=== PATIENT | male | born 1965 | race Caucasian/White ===

== ENCOUNTER 2024-06-24 05:29 | Inpatient (IN) ==
[2024-06-24] MEDS: DUONEB NEB STA ×3 (05:35→05:45)
[2024-06-24] MEDS: SOLU-MEDROL 125 MG IVP ONE (05:42)
[2024-06-24 06:01] LABS: BASOPHILS # (AUTO) 0.1 K/uL (0-0.2); BASOPHILS % (AUTO) 0.5 % (0.0-3.0); EOSINOPHILS # (AUTO) 1.7 K/ul (0.0-0.7); EOSINOPHILS % (AUTO) 15.3 % (0.0-7.0); HEMATOCRIT 42.7 % (42.0-52.0); IMMATURE GRANULOCYTE % (AUTO) 0.2 % (0.0-5.0); LYMPHOCYTES # (AUTO) 1.6 K/uL (0.60-3.4); LYMPHOCYTES % (AUTO) 14.9 (10.0-50.0); MEAN CORPUSCULAR HEMOGLOBIN 30.8 pg (27.0-31.0); MEAN CORPUSCULAR HGB CONC 32.8 (31.8-35.4); MEAN CORPUSCULAR VOLUME 93.8 fl (80.0-94.0); MONOCYTES # (AUTO) 1.1 K/uL (0.4-2.0); NEUTROPHILS # (AUTO) 6.4 K/ul (2.0-6.9); NEUTROPHILS % (AUTO) 59.1 % (42.2-75.2); PLATELET COUNT 236 10^3/uL (140-440); RDW COEFFICIENT OF VARIATION 11.9 % (11.6-14.8); RED BLOOD COUNT 4.55 10^6/ul (4.70-6.10); WHITE BLOOD COUNT 10.76 K/ul (4.2-10.2)
--- NOTE | 2024-06-24 06:02 | ED.PDOC ---
General ED Provider: Dr. RAYRAY COHEN MD Chief Complaint: Respiratory Complaint Stated Complaint: Patient is a 59-year-old male that reported to the emergency department in respiratory distress. His at bedside stated that the patient had polyps removed from his nose approximately 2 months ago. She stated that for the past 3 days he has had shortness of breath and difficulty with breathing at night. She stated that tonight was the worst and it started around 3 AM. Patient stated that he had what he thought was a sinus infection and has been taking Mucinex [id number] for the past 3 days. Patient stated that he is progressively gotten worse and he thinks the infection has moved into his chest. Patient stated that he has no history of respiratory disease. Patient's history otherwise is limited due to patient's current respiratory distress. Patient has wheezing in all lung villeda predominantly in the mid to lower lung villeda. Patient is also diminished on auscultation in the mid to lower lung villeda. Patient denies any other chronic past medical history. Patient states that nothing has made his symptoms better. Patient states that he believes activity has made his symptoms worse during the day. Patient denied having any chest pain, nausea, vomiting, diarrhea, dizziness, syncope, abdominal pain, sore throat, or any other acute symptoms not currently mentioned in the HPI. Patient's vital signs are currently heart rate 120 bpm, blood pressure 173/114, respiratory rate 31 respirations per minute, temperature 98 F. Patient's GCS is 15. Time Seen by Provider: 06/24/24 05:50 Mode of Arrival: Walk-In Information Source: Patient and Family Exam Limitations: Clinical condition Primary Care Provider: CHENCHO VASQUEZ Nursing and Triage Documentation Reviewed and Agree: Yes Does Patient Take Opioids?: No Is Patient Opioid Naive?: No What is Opioid Naive?: *Opioid Naive implies the patient is not already taking opioids or not chronically receiving opioids on a daily basis. *PRN dosing is not "usually" associated with tolerance. *Patients are at higher risk of over-sedation and aspiration. Is Patient Opioid Tolerant?: No What is Opioid Tolerant?: *Opioid Tolerance implies less than the expected response to an opioid. *Acquired tolerance is defined by the patient taking 60mg of oral morphine daily (or equianalgesic dose of another opioid) for 1 week or more. *Often associated with chronic pain. *May take more than usual dose to achieve desired pain control. Review of Systems Review Of Systems Constitutional: Reports Other (Respiratory distress.) Respiratory: Reports Cough, Shortness of Breath and Wheezing All Other Systems: Reviewed and Negative Physical Exam Physical Exam Appearance: Reports Ill-appearing and Other (Patient in respiratory distress.) Ill-appearing: Severe Pain Distress: None Eyes: Reports NANCY, EOMI and Conjunctiva clear ENT: Reports Nose normal and Oropharynx normal Neck: Supple Respiratory: Reports Airway patent, Breath sounds equal, Breath sounds diminished (Breath sounds diminished in mid and lower lung villeda.), Rhonchi, Wheezes (Wheezing bilaterally in all lung villeda.) and Other Cardiovascular: Reports Pulses normal, No rub, No murmur and Tachycardia (Patient has apical pulse of 115 bpm.) GI/: Reports Soft, Nontender, No masses and Bowel sounds normal Musculoskeletal: Reports Normal strength, ROM intact, No edema and No calf tenderness Skin: Reports Warm, Dry and Normal color Neurological: Reports Sensation intact, Motor intact, Alert and Oriented Psychiatric: Reports Anxious Critical Care Note Critical Care Note Total Critical Care Time (mins): 60 Comments: Critical Care Procedure Note Authorized and Performed by:Dr. Rayray Cohen MD, MPH Total critical care time: 60minutes Due to a high probability of clinically significant, life threatening deterioration, the patient required my highest level of preparedness to intervene emergently and I personally spent this critical care time directly and personally managing the patient. This critical care time included obtaining a history; examining the patient; pulse oximetry; ordering and review of studies; arranging urgent treatment with development of a management plan; evaluation of patient's response to treatment; frequent reassessment; and, discussions with other providers. This critical care time was performed to assess and manage the high probability of imminent, life-threatening deterioration that could result in multi-organ failure. It was exclusive of separately billable procedures and treating other patients and teaching time. Please see MDM section and the rest of the note for further information on patient assessment and treatment. Course Course 06/24/24 05:45 06/24/24 05:45 Orders, Labs, Meds: Lab Review 06/24/24 06/24/24 05:45 06:00 WBC 10.76 H RBC 4.55 L Hgb 14.0 Hct 42.7 MCV 93.8 MCH 30.8 MCHC 32.8 RDW Coeff of Susan 11.9 Plt Count 236 Immature Gran % (Auto) 0.2 Neut % (Auto) 59.1 Lymph % (Auto) 14.9 Weston % (Auto) 10.0 Eos % (Auto) 15.3 H Baso % (Auto) 0.5 Neut # (Auto) 6.4 Lymph # (Auto) 1.6 Weston # (Auto) 1.1 Eos # (Auto) 1.7 H Baso # (Auto) 0.1 Immature Gran # (Auto) 0.0 ESR 7 PT 9.7 INR 0.93 Sodium 139.8 Potassium 4.03 Chloride 103.3 Carbon Dioxide 26.9 Anion Gap 13.63 BUN 13.9 Creatinine 0.84 Estimated GFR (MDRD) 94.00 BUN/Creatinine Ratio 16.54 Glucose 117.2 H Lactic Acid 1.67 Calcium 8.91 Magnesium 1.95 Total Bilirubin 0.44 AST 34.7 ALT 24.2 Alkaline Phosphatase 87.1 Troponin I < 0.012 Total Protein 7.81 Albumin 4.65 Globulin 3.16 Albumin/Globulin Ratio 1.47 D-Dimer 525.01 H Influ A Molecular Assay Negative by naat Influ B Molecular Assay Negative by naat RSV Antigen Negative by naat SARS CoV-2 RNA Rapid MARIELLE Negative Orders Category Date Time Status ABG DRAW REQUEST Stat CARDIO 06/24/24 05:50 Ordered EKG-(ED ONLY) Stat CARDIO 06/24/24 05:54 Ordered NEBULIZER TREATMENT Stat CARDIO 06/24/24 05:51 Ordered NEBULIZER TREATMENT Stat CARDIO 06/24/24 05:52 Ordered NEBULIZER TREATMENT Stat CARDIO 06/24/24 05:52 Ordered NEBULIZER TREATMENT Stat CARDIO 06/24/24 06:36 Ordered ED APPLY O2 .ONCE EMERGENCY 06/24/24 05:50 Active ED NETWORKER APPLIED .ONCE EMERGENCY 06/24/24 05:50 Active ED IV/MEDIPORT/POWERPORT .ONCE EMERGENCY 06/24/24 05:50 Active ED VITAL SIGNS .ONCE EMERGENCY 06/24/24 05:50 Active ABG COOX Stat LAB 06/24/24 06:25 Received BLOOD CULTURE (ED ONLY) Stat LAB 06/24/24 06:27 Received C-REACTIVE PROTEIN Stat LAB 06/24/24 05:45 Received CBC W/ AUTO DIFF Stat LAB 06/24/24 05:45 Completed COMPREHENSIVE METABOLIC PANEL Stat LAB 06/24/24 05:45 Completed D-DIMER Stat LAB 06/24/24 05:45 Completed ESR Stat LAB 06/24/24 05:45 Completed FLU A/B MOLECULAR Stat LAB 06/24/24 06:00 Completed LACTIC ACID Stat LAB 06/24/24 05:45 Completed MAGNESIUM Stat LAB 06/24/24 05:45 Completed MRSA SCREEN Routine LAB 06/24/24 06:00 Received PROCALCITONIN Stat LAB 06/24/24 05:45 Received PT WITH INR Stat LAB 06/24/24 05:45 Completed RAPID STREP SCREEN [MOLECULAR GROUP A STREP] Stat LAB 06/24/24 06:00 Completed RSV Stat LAB 06/24/24 06:00 Completed SARS COV-2 RNA RAPID MARIELLE Stat LAB 06/24/24 06:00 Completed TROPONIN I Stat LAB 06/24/24 05:45 Completed URINALYSIS C & S IF INDICATED Stat LAB 06/24/24 05:50 Uncollected 0.9 % Sodium Chloride [Saline Flush] Meds 06/24/24 05:50 Active 1 syr IVF PRN PRN Albuterol Sulfate 0.083% Neb [Albuterol 0.083% Neb] Meds 06/24/24 06:35 Discontinued 2.5 mg NEB ONCE STA Albuterol Sulfate 0.083% Neb [Albuterol 0.083% Neb] Meds 06/24/24 06:35 Discontinued 5 mg NEB .STK-MED ONE Cefepime 1 gm Vial [Maxipime 1 gm Vial] Meds 06/24/24 06:11 Discontinued 1 gm .ROUTE .STK-MED ONE Cefepime 1 gm Vial [Maxipime 1 gm Vial] 1 gm Meds 06/24/24 06:04 Discontinued 0.9 % Sodium Chloride [Sodium Chloride] 50 ml IV ONCE Clindamycin Phosphate/D5w [Cleocin 300 mg/50 ml D5w] Meds 06/24/24 06:06 Discontinued 300 mg in 50 ml IV ONCE Ipratropium/Albuterol Neb [Duoneb] Meds 06/24/24 05:50 Discontinued 3 ml NEB ONCE STA Ipratropium/Albuterol Neb [Duoneb] Meds 06/24/24 05:51 Discontinued 3 ml NEB ONCE STA Ipratropium/Albuterol Neb [Duoneb] Meds 06/24/24 05:52 Discontinued 3 ml NEB ONCE STA Magnesium Sulfate [Magnesium Sulfate 1 gm/2 ml Vial] Meds 06/24/24 05:55 Discontinued 1 gm IVP ONCE ONE Methylprednisolone Sod Succ/Pf [Solu-Medrol 125 mg] Meds 06/24/24 05:35 Discontinued 125 mg .ROUTE .STK-MED ONE Methylprednisolone Sod Succ/Pf [Solu-Medrol 125 mg] Meds 06/24/24 05:50 Discontinued 125 mg IVP ONCE ONE Sodium Chloride 0.9% [Sodium Chloride] 1,000 ml Meds 06/24/24 05:53 Discontinued IV BOLUS CHEST, 1V AP ONLY Stat RADS 06/24/24 05:47 Completed Medications Generic Name Dose Route Start Last Admin Trade Name Freq PRN Reason Stop Dose Admin Sodium Chloride 1 syr 06/24/24 05:50 0.9% Sodium Chloride 10 Ml Disp.Syrin IVF PRN PRN To flush IV Discontinued Medications Generic Name Dose Route Start Last Admin Trade Name Freq PRN Reason Stop Dose Admin Albuterol Sulfate 2.5 mg 06/24/24 06:35 06/24/24 06:41 Albuterol Sulfate 0.083% Vial.[facility] 06/24/24 06:36 2.5 mg ONCE STA Administration Albuterol/Ipratropium 3 ml 06/24/24 05:50 Ipratropium/Albuterol Vial.Neb [facility] 06/24/24 05:51 ONCE STA Albuterol/Ipratropium 3 ml 06/24/24 05:51 Ipratropium/Albuterol Vial.Neb [facility] 06/24/24 05:52 ONCE STA Albuterol/Ipratropium 3 ml 06/24/24 05:52 Ipratropium/Albuterol Vial.Neb [facility] 06/24/24 05:53 ONCE STA Sodium Chloride 1,000 mls @ 1,000 mls/hr 06/24/24 05:53 06/24/24 06:08 Sodium Chloride IV 06/24/24 06:52 1,000 mls/hr BOLUS ONE Administration Cefepime HCl 1 gm/ Sodium 50 mls @ 100 mls/hr 06/24/24 06:04 06/24/24 06:31 Chloride IV 06/24/24 06:33 100 mls/hr ONCE ONE Administration Clindamycin Phosphate 300 mg in 50 mls @ 75 mls/hr 06/24/24 06:06 Cleocin 300 Mg/50 Ml D5w IV 06/24/24 06:45 ONCE ONE Magnesium Sulfate 1 gm 06/24/24 05:55 06/24/24 06:08 Magnesium Sulfate Vial 1 Gm/2 Ml Vial IVP 06/24/24 05:56 1 gm ONCE ONE Administration Methylprednisolone Sodium Succinate 125 mg 06/24/24 05:50 06/24/24 05:42 Methylprednisolone Sod Succ/Pf 125 Mg/2 Ml Vial IVP 06/24/24 05:51 125 mg ONCE ONE Administration Vital Signs: Temp Pulse Resp BP Pulse Ox O2 Flow Rate 06/24/24 06:19 112 H 30 H 164/101 H 97 4 06/24/24 05:30 6 06/24/24 05:29 98.1 F 108 H 34 H 202/173 H 82 L Discharge Plan Discharge Patient Disposition: ADMITTED INPATIENT Discharge Problem: Acute hypoxemic respiratory failure, Asthma with severe exacerbation Did you review [place] 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 His at bedside stated that the patient had polyps removed from his nose approximately 2 months ago. She stated that for the past 3 days he has had shortness of breath and difficulty with breathing at night. She stated that tonight was the worst and it started around 3 AM. Patient stated that he had what he thought was a sinus infection and has been taking Mucinex [id number] for the past 3 days. Patient stated that he is progressively gotten worse and he thinks the infection has moved into his chest. Patient stated that he has no history of respiratory disease. Patient's history otherwise is limited due to patient's current respiratory distress. Patient has wheezing in all lung villeda predominantly in the mid to lower lung villeda. Patient is also diminished on auscultation in the mid to lower lung villeda. Patient denies any other chronic past medical history. Patient states that nothing has made his symptoms better. Patient states that he believes activity has made his symptoms worse during the day. Patient denied having any chest pain, nausea, vomiting, diarrhea, dizziness, syncope, abdominal pain, sore throat, or any other acute symptoms not currently mentioned in the HPI. Patient's vital signs are currently heart rate 120 bpm, blood pressure 173/114, respiratory rate 31 respirations per minute, temperature 98 F. Patient's GCS is 15. -Patient came into the ER in respiratory distress. Patient's O2 was initially 85% on room air. Patient was placed on 5 L nasal cannula which brought his O2 sat up to 95%. Gave 3 DuoNeb treatments and IV methylprednisolone 125 mg. Patient's breathing improved. After treatment patient's heart rate came down to 114 bpm, O2 sat of 100% and breaths at 30 respirations per minute. -Will give mag sulfate 1 g. -Will order chest x-ray. -Chest x-ray shows multiple scattered calcified granulomas in the lungs. and mild consolidation in the right lower lobe. This was interpreted by the ER physician. -Will order EKG, troponin, baseline labs. -Will order flu, COVID, RSV, MRSA, and strep test. -Will give IV normal saline 1 L bolus for dehydration. -As patient appears to have sepsis we will give IV cefepime 1 g and IV clindamycin 300 mg once in the ED. -EKG shows sinus tachycardia with occasional PVC. Patient's ventricular rate is 109 bpm. Patient's QTc is 449 ms, QRS 76 ms, [place] interval [address] elevations are noted. This was interpreted by the ER physician. -Patient is currently on 4 L nasal cannula with an O2 sat of 98%. -Patient is still wheezing and most lung villeda. Will give pt 2 albuterol neb. -CBC shows a leukocytosis of 11,000 otherwise unremarkable. CMP unremarkable. Flu, COVID, strep, and RSV are negative. Lactic acid negative. -Troponin negative. -0650: Spoke to hospitalist at [facility], JILL Russell, about admission. At time of admission patient's vital signs were heart rate 115, O2 sat 94% on 3 L nasal cannula, respiratory 30 respirations per minute, and BP 165/99. I spoke to the hospitalist about the patient's current treatment and history of present illness. Patient's current diagnosis of acute exacerbation of asthma versus COPD exacerbation with acute hypoxemic respiratory failure. She is agreed to admit the patient to inpatient.
[2024-06-24] MEDS: SOLU-MEDROL 125 MG ONE (06:03)
[2024-06-24] MEDS: MAGNESIUM SULFATE 1 GM/2 ML VIAL IVP ONE (06:08)
[2024-06-24] MEDS: SODIUM CHLORIDE 1,000 ML IV ONE (06:08)
--- NOTE | 2024-06-24 06:09 | DI ---
EXAM: FRONTAL VIEW OF THE CHEST. HISTORY: Shortness of air. COMPARISON: None. FINDINGS: Multiple scattered calcified granulomas in the lungs. Aortic calcifications. Normal heart size. No acute consolidation. No visible pleural effusion or pneumothorax. Chronic-appearing right-sided rib fractures. Multilevel degenerative spondylosis. Small round metal foreign object projects over the right upper extremity. IMPRESSION: No acute finding in the chest.
[2024-06-24 06:16] LABS: PROTHROMBIN TIME 9.7 SEC (9.3-11.0)
[2024-06-24 06:24] LABS: ALANINE AMINOTRANSFERASE 24.2 U/L (0-50); ALBUMIN 4.65 g/dL (3.5-5.0); ALKALINE PHOSPHATASE 87.1 U/L (56-119); ASPARTATE AMINO TRANSFERASE 34.7 U/L (17-59); BILIRUBIN,TOTAL 0.44 mg/dL (0.2-1.3); BLOOD UREA NITROGEN 13.9 mg/dL (9-20); CALCIUM 8.91 mg/dL (8.4-10.2); CARBON DIOXIDE 26.9 mmol/L (22-30.0); CHLORIDE 103.3 mmol/L (98-107); CREATININE 0.84 mg/dL (0.60-1.10); GLUCOSE 117.2 mg/dL (74-106); MAGNESIUM 1.95 mg/dL (1.6-2.3); POTASSIUM 4.03 mmol/L (3.5-5.1); SODIUM 139.8 mmol/L (134.5-145); TOTAL PROTEIN 7.81 g/dL (6.3-8.2)
[2024-06-24 06:30] LABS: SARS COV-2 RNA RAPID NAAT NEGATIVE (NEGATIVE)
[2024-06-24] MEDS: MAXIPIME 1 GM VIAL 1 GM in SODIUM CHLORIDE 50 ML IV ONE (06:31)
[2024-06-24 06:32] LABS: MOLECULAR FLU A NEGATIVE BY NAAT (NEGATIVE); MOLECULAR FLU B NEGATIVE BY NAAT (NEGATIVE); RSV MOLECULAR NEGATIVE BY NAAT (NEGATIVE)
[2024-06-24] MEDS: MAXIPIME 1 GM VIAL ONE (06:32)
[2024-06-24 06:36] LABS: ERYTHROCYTE SEDIMENTATION RATE 7 mm/hr (0-15); TROPONIN I < 0.012 ng/ml (0.0000-0.120)
[2024-06-24] MEDS: ALBUTEROL 0.083% NEB NEB STA ×2 (06:41→07:03)
[2024-06-24] MEDS: CLEOCIN 300 MG/50 ML D5W 300 MG/50 ML BAG IV ONE (07:02)
[2024-06-24] MEDS: ALBUTEROL 0.083% NEB NEB ONE (07:03)
[2024-06-24 07:07] LABS: ABG O2 HGB 93.9 % (95-100); ABG PH 7.31 (7.35-7.45); BEecf -5.7 (-2.0-3.0); COHb 2.4 (0.5-1.5); HCO3 20.6 (21-28); MetHb 1.1 (0-1.5); TCO2 21.9 (19-24); tHb 13.4 g/dl (11.7-17.4)
[2024-06-24 09:33] VITALS: BMI 26.0
[2024-06-24] MEDS ORDERED: TYLENOL PO PRN (10:38)
[2024-06-24] MEDS ORDERED: ZOFRAN 4 MG/2 ML IVP PRN (10:38)
[2024-06-24] MEDS ORDERED: FLORASTOR PO SCH (11:00)
[2024-06-24] MEDS: DUONEB NEB SCH (11:04)
[2024-06-24] MEDS: DOXYCYCLINE HYCLATE PO SCH (11:14)
[2024-06-24] MEDS: ROCEPHIN 1 GM/50 ML D5W 1 GM/50 ML BAG IV SCH (11:15)
[2024-06-24] MEDS: SOLU-MEDROL 40 MG IVP SCH (12:04)
[2024-06-24] MEDS: CHLORASEPTIC SPRAY MM PRN (12:04)
[2024-06-24] MEDS ORDERED: ROBITUSSIN DM SYRUP PO PRN (13:43)
--- NOTE | 2024-06-24 13:54 | PCM ---
Date of Service Date Seen by Provider: 06/24/24 Time Seen by Provider: 08:05 Admit Day/Time Admission Date: 06/24/24 Admission Time: 07:01 Reason for Admission Chief Complaint: ACUTE EXACERBATION ASTHMA, ACUTE LYPOXEMIA, Hospital Provider Hospital Provider: ANA ROSA WADDELL PA-C, [facility] [place] Phys[place] Primary Care Physician: GLENDA PHILIP History of Present Illness History of Present Illness: Patient is a 59 year old male from home with no significant pmhx who presents to ER for worsening SOB. Patient states he had nasal polyps removed in April. He has stents removed and developed a sinus infection. Then feels as though it's gone to his chest. Last few nights he can't lie flat to sleep due to SOB. He came into the ER in critical condition tachypneic, hypoxic in the low 80s, and t achycardic. He received abx, steroids, magnesium, several breathing treatments. He was on 6L and started to feel better. Pt denies hx of COPD/asthma. No smoking. States he took 5 doses of clindamycin he had left over at home without relief. He is admitted to [facility]. Reevaluated patient multiple times since admission, he is able to speak full sentences but still very tight and wheezing. Eating lunch without difficulty. Became very sob trying to ambulate to bathroom and required turning oxygen up. Case Discussed With Case Discussed With: Patient's case was discussed with the ER Physicians, Dr. Lo. [facility] Medical History Cellulitis of right anterior lower leg L03.115 - Cellulitis of right lower limb (ICD-10) Nasal polyps J33.9 - Nasal polyp, unspecified (ICD-10) Family History FATHER Heart attack Mother CHF (congestive heart failure) MATERNAL GRANDFATHER History of open heart surgery Diabetes Allergies Allergies Allergy/AdvReac Type Severity Reaction Status Date / Time Penicillins AdvReac Verified 06/24/24 09:36 Current Medications Home Medications 1 [No Reported Medications] 06/24/24 [History Confirmed 06/24/24 Last Taken Unknown] Home Acetaminophen (Acetaminophen 325 Mg Tablet) 650 mg PO Q4H PRN PRN Reason: Mild Pain Albuterol/Ipratropium (Ipratropium/Albuterol Vial.Neb) 3 ml NEB RTQ4H [facility] Last Admin: 06/24/24 11:04 Dose: 3 ml Benzonatate (Benzonatate 100 Mg Capsule) 100 mg PO TID PRN PRN Reason: cough Doxycycline Hyclate (Doxycycline Hyclate 100 Mg Capsule) 100 mg PO Q12HR [facility] Stop: 06/27/24 10:59 Last Admin: 06/24/24 11:14 Dose: 100 mg Enoxaparin Sodium (Enoxaparin Sodium 40 Mg/0.4 Ml Syr) 40 mg SUBCUT DAILY [facility] Guaifenesin (Guaifenesin 600 Mg Tablet.Er) 600 mg PO Q12HR [facility] Guaifenesin/Dextromethorphan (Guaifenesin/Dextromethorphan 200/20 Mg/10 Ml Cup) 10 ml PO Q4H PRN PRN Reason: Cough CEFTRIAXONE/D5W 1 GM PREMIX (Rocephin 1 Gm/50 Ml D5w) 1 gm in 50 mls @ 100 mls/hr IV DAILY [facility] Stop: 06/27/24 10:59 Last Admin: 06/24/24 11:15 Dose: 100 mls/hr Methylprednisolone Sodium Succinate (Methylprednisolone Sod Succ/Pf 40 Mg/Ml Vial) 40 mg IVP Q8HR [facility] Last Admin: 06/24/24 12:04 Dose: 40 mg Ondansetron HCl (Ondansetron Hcl/Pf 4 Mg/2 Ml Sdv) 4 mg IVP Q6H PRN PRN Reason: Nausea / Vomiting Phenol/Menthol (Phenol 1 [place] Btl) 1 spray MM Q2H PRN PRN Reason: SORE THROAT Last Admin: 06/24/24 12:04 Dose: 1 spray Sodium Chloride (0.9% Sodium Chloride 10 Ml Disp.Syrin) 1 syr IVF PRN PRN PRN Reason: To flush IV Discontinued Medications Albuterol Sulfate (Albuterol Sulfate 0.083% Vial.Neb) 2.5 mg NEB ONCE STA Stop: 06/24/24 06:36 Last Admin: 06/24/24 06:41 Dose: 2.5 mg Albuterol Sulfate (Albuterol Sulfate 0.083% Vial.Neb) 2.5 mg NEB ONCE STA Stop: 06/24/24 06:58 Last Admin: 06/24/24 07:03 Dose: 2.5 mg Albuterol/Ipratropium (Ipratropium/Albuterol Vial.Neb) 3 ml NEB ONCE STA Stop: 06/24/24 05:51 Last Admin: 06/24/24 05:40 Dose: Not Given Albuterol/Ipratropium (Ipratropium/Albuterol Vial.Neb) 3 ml NEB ONCE STA Stop: 06/24/24 05:52 Last Admin: 06/24/24 05:45 Dose: 3 ml Albuterol/Ipratropium (Ipratropium/Albuterol Vial.Neb) 3 ml NEB ONCE STA Stop: 06/24/24 05:53 Last Admin: 06/24/24 05:55 Dose: 3 ml Sodium Chloride (Sodium Chloride) 1,000 mls @ 1,000 mls/hr IV BOLUS ONE Stop: 06/24/24 06:52 Last Infusion: 06/24/24 07:08 Dose: Infused Cefepime HCl 1 gm/ Sodium (Chloride) 50 mls @ 100 mls/hr IV ONCE ONE Stop: 06/24/24 06:33 Last Admin: 06/24/24 06:31 Dose: 100 mls/hr Clindamycin Phosphate (Cleocin 300 Mg/50 Ml D5w) 300 mg in 50 mls @ 75 mls/hr IV ONCE ONE Stop: 06/24/24 06:45 Last Admin: 06/24/24 07:02 Dose: 75 mls/hr Magnesium Sulfate (Magnesium Sulfate Vial 1 Gm/2 Ml Vial) 1 gm IVP ONCE ONE Stop: 06/24/24 05:56 Last Admin: 06/24/24 06:08 Dose: 1 gm Methylprednisolone Sodium Succinate (Methylprednisolone Sod Succ/Pf 125 Mg/2 Ml Vial) 125 mg IVP ONCE ONE Stop: 06/24/24 05:51 Last Admin: 06/24/24 05:42 Dose: 125 mg Opioid Naive vs. Tolerant Does Patient Take Opioids?: No Is Patient Opioid Naive?: Yes What is Opioid Naive?: *Opioid Naive implies the patient is not already taking opioids or not chronically receiving opioids on a daily basis. *PRN dosing is not "usually" associated with tolerance. *Patients are at higher risk of over-sedation and aspiration. Is Patient Opioid Tolerant?: No What is Opioid Tolerant?: *Opioid Tolerance implies less than the expected response to an opioid. *Acquired tolerance is defined by the patient taking 60mg of oral morphine daily (or equianalgesic dose of another opioid) for 1 week or more. *Often associated with chronic pain. *May take more than usual dose to achieve desired pain control. Review of Systems Constitutional: Reports Fatigue; Denies Fever Head: Reports Normocephalic and Atraumatic Throat: Denies Sore Throat Cardiovascular: Denies Chest pain, Chest Pressure or Edema Respiratory: Reports Cough, Shortness of air, Wake Coughing at Night and Wheeze Gastrointestinal: Denies Nausea, Vomiting, Diarrhea, Abdominal pain or Melena Genitourinary: Denies Dysuria or Hematuria Dermatologic: Denies Rashes Neurological: Denies Headache or Dizziness Physical examination Most Recent Vital Signs: Most Recent Vital Signs Temperature 98.6 F 06/24/24 09:22 Temperature Source Temporal Artery Scan 06/24/24 09:22 Temperature Source Oral 06/24/24 05:29 Pulse Rate 117 H 06/24/24 09:22 Respiratory Rate 30 H 06/24/24 09:22 Blood Pressure 143/98 H 06/24/24 08:06 Blood Pressure Left Arm 155/102 06/24/24 09:22 Blood Pressure Position Sitting 06/24/24 09:22 O2 Sat by Pulse Oximetry 98 06/24/24 11:19 Oxygen Delivery Method Nasal Cannula 06/24/24 11:19 Oxygen Flow Rate 4 06/24/24 11:19 Height 5 ft 10 in 06/24/24 09:22 Weight 82.4 kg 06/24/24 09:22 Appearance: Positive Alert and Oriented x3, Ill-Appearing and Other (+mild distress, able to speak full sentences but slowly ) Skin: Positive [place], Warm and Good Turgor; Negative Rashes HEENT: Positive Normocephalic and Atraumatic Neck: Positive Supple and Midline Trachea Chest/Lungs: Positive Symmetrical With Equal Breath Sounds and Wheezes (je, all villeda ) Heart: Positive RRR and Tachycardia GI/: Positive Soft, Nontender, Bowel Sounds Normal and No Distention Extremities: Negative Edema Neurological: Positive Cranial Nerves Intact, Alert and Oriented Psychiatric: Positive Oriented x4, Appropriate Mood and Appropriate Affect Labs This Visit Labs This Visit: Labs This Visit 1006/24/24 06/24/24 05:45 06:00 06:25 WBC 10.76 H RBC 4.55 L Hgb 14.0 Hct 42.7 MCV 93.8 MCH 30.8 MCHC 32.8 RDW Coeff of Susan 11.9 Plt Count 236 Immature Gran % (Auto) 0.2 Neut % (Auto) 59.1 Lymph % (Auto) 14.9 Porter % (Auto) 10.0 Eos % (Auto) 15.3 H Baso % (Auto) 0.5 Neut # (Auto) 6.4 Lymph # (Auto) 1.6 Porter # (Auto) 1.1 Eos # (Auto) 1.7 H Baso # (Auto) 0.1 Immature Gran # (Auto) 0.0 ESR 7 PT 9.7 INR 0.93 Puncture Site R rad Base Excess -5.7 L O2 Saturation 91.0 L ABG pH 7.31 L ABG pCO2 41.0 ABG pO2 67.0 L ABG HCO3 20.6 L ABG Total CO2 21.9 [place] Test Pos Hemoglobin 1.1 Oxyhemoglobin 93.9 L Carboxyhemoglobin 2.4 H Total Hemoglobin 13.4 O2 Delivery Device Cannula Oxygen Liter Flow 3.00 Sodium 139.8 Potassium 4.03 Chloride 103.3 Carbon Dioxide 26.9 Anion Gap 13.63 BUN 13.9 Creatinine 0.84 Estimated GFR (MDRD) 94.00 BUN/Creatinine Ratio 16.54 Glucose 117.2 H Lactic Acid 1.67 Calcium 8.91 Magnesium 1.95 Total Bilirubin 0.44 AST 34.7 ALT 24.2 Alkaline Phosphatase 87.1 Troponin I < 0.012 Total Protein 7.81 Albumin 4.65 Globulin 3.16 Albumin/Globulin Ratio 1.47 Procalcitonin < 0.05 D-Dimer 525.01 H Influ A Molecular Assay Negative by naat Influ B Molecular Assay Negative by naat RSV Antigen Negative by naat SARS CoV-2 RNA Rapid MARIELLE Negative Microbiology This Visit 06/24/24 06:00 Throat Group A Strep Molecular Assay - Final Imaging Imaging: EXAM: FRONTAL VIEW OF THE CHEST. HISTORY: Shortness of air. COMPARISON: None. FINDINGS: Multiple scattered calcified granulomas in the lungs. Aortic calcifications. Normal heart size. No acute consolidation. No visible pleural effusion or pneumothorax. Chronic-appearing right-sided rib fractures. Multilevel degenerative spondylosis. Small round metal foreign object projects over the right upper extremity. IMPRESSION: No acute finding in the chest. Review Statement Review Statement: I have independently reviewed and interpreted the labs/EKGs/imaging that were ordered by the ER provider. I have reviewed all outside records that are available currently in our EMR including imaging/notes/labs from previous visits. Plan Plan: 1. Acute hypoxic respiratory failure in setting of acute bronchitis - No hx of copd/asthma. Requiring up to 6L. Recent sinus infection. Breathing is less labored at this time. CXR negative. Treat with steroids, rocephin and doxy, duonebs, O2. 2. Acute bronchitis - Plan as above DVT Prophylaxis: Lovenox Time Spent: Greater than 80 minutes spent with patient, 50% of the time spent with this patient was devoted to counseling and coordination of care. [facility] minutes spent discussing advance care planning. Admit to: Inpatient Discussed Plan of Care with Dr. Melissa Arreola. Medications Medication Orders: Medications Ordered Category Date Time Status 0.9 % Sodium Chloride [Saline Flush] Meds 06/24/24 05:50 Active 1 syr IVF PRN PRN Acetaminophen [Tylenol] Meds 06/24/24 10:38 Active 650 mg PO Q4H PRN Benzonatate [Tessalon Perles] Meds 06/24/24 13:43 Ordered 100 mg PO TID PRN Ceftriaxone/D5w 1 gm Premix [Rocephin 1 gm/50 ml D5w] Meds 06/24/24 11:00 Active 1 gm in 50 ml IV DAILY Doxycycline Hyclate Meds 06/24/24 11:00 Active 100 mg PO Q12HR Guaifenesin [Mucinex] Meds 06/24/24 13:45 Ordered 600 mg PO Q12HR Guaifenesin/Dextromethorphan [Robitussin Dm Syrup] Meds 06/24/24 13:43 Ordered 10 ml PO Q4H PRN Ipratropium/Albuterol Neb [Duoneb] Meds 06/24/24 10:40 Active 3 ml NEB RTQ4H Methylprednisolone Sod Succ/Pf [Solu-Medrol 40 mg] Meds 06/24/24 13:00 Active 40 mg IVP Q8HR Ondansetron HCl/Pf [Zofran 4 mg/2 ml] Meds 06/24/24 10:38 Active 4 mg IVP Q6H PRN Phenol [Chloraseptic [place]] Meds 06/24/24 11:32 Active 1 spray MM Q2H PRN
[2024-06-24] MEDS: MUCINEX PO SCH (15:03)
[2024-06-24] MEDS: TESSALON PERLES PO PRN (15:03)
[2024-06-24] MEDS: TUMS CHEWABLE PO PRN (21:09)
[2024-06-25 05:09] LABS: BASOPHILS % (AUTO) 0.1 % (0.0-3.0); HEMATOCRIT 39.3 % (42.0-52.0); HEMOGLOBIN 12.6 g/dl (14.0-18.0); IMMATURE GRANULOCYTE # (AUTO) 0.1 (0.0-1.0); IMMATURE GRANULOCYTE % (AUTO) 0.5 % (0.0-5.0); LYMPHOCYTES # (AUTO) 0.9 K/uL (0.60-3.4); LYMPHOCYTES % (AUTO) 6.9 (10.0-50.0); MEAN CORPUSCULAR HGB CONC 32.1 (31.8-35.4); MEAN CORPUSCULAR VOLUME 96.6 fl (80.0-94.0); MONOCYTES # (AUTO) 0.7 K/uL (0.4-2.0); MONOCYTES % (AUTO) 5.2 (0-10); NEUTROPHILS # (AUTO) 11.8 K/ul (2.0-6.9); NEUTROPHILS % (AUTO) 87.3 % (42.2-75.2); PLATELET COUNT 222 10^3/uL (140-440); RDW COEFFICIENT OF VARIATION 12.4 % (11.6-14.8); RED BLOOD COUNT 4.07 10^6/ul (4.70-6.10)
[2024-06-25 05:23] LABS: ALANINE AMINOTRANSFERASE 22.6 U/L (0-50); ALBUMIN 4.25 g/dL (3.5-5.0); ALKALINE PHOSPHATASE 75.1 U/L (56-119); ASPARTATE AMINO TRANSFERASE 41.5 U/L (17-59); BILIRUBIN,TOTAL 0.47 mg/dL (0.2-1.3); BLOOD UREA NITROGEN 16.7 mg/dL (9-20); CALCIUM 9.1 mg/dL (8.4-10.2); CARBON DIOXIDE 26.4 mmol/L (22-30.0); CHLORIDE 104.7 mmol/L (98-107); CREATININE 0.75 mg/dL (0.60-1.10); GLUCOSE 146.1 mg/dL (74-106); POTASSIUM 4.88 mmol/L (3.5-5.1); SODIUM 136.5 mmol/L (134.5-145); TOTAL PROTEIN 7.16 g/dL (6.3-8.2)
[2024-06-25] MEDS: LOVENOX SUBCUT SCH (08:47)
--- NOTE | 2024-06-25 11:46 | PCM.PROG ---
Date/Time Seen Date Seen by Provider: 06/25/24 Time Seen by Provider: 08:40 Provider [facility] Chief Complaint Chief Complaint: ACUTE EXACERBATION ASTHMA, ACUTE LYPOXEMIA, Subjective Subjective: Patient is feeling better today. Still requiring oxygen. Still having sob. Able to speak much easier however. Objective Appearance: Positive No Apparent Distress and Alert and Oriented x3 Chest/Lungs: Positive Symmetrical With Equal Breath Sounds and Wheezes Heart: Positive RRR and Tachycardia GI/: Positive Soft, Nontender, Bowel Sounds Normal and No Distention Neurological: Positive Cranial Nerves Intact, Alert and Oriented Vital Signs Vital Signs: Vital Signs: Last 24 Hours 06/24/24 13:00 06/24/24 14:00 06/24/24 14:00 Temperature 98.4 F Temperature Source Temporal Artery Scan Pulse Rate 113 H Respiratory Rate 20 Blood Pressure 145/92 H Blood Pressure Mean 109 Blood Pressure Location Right Arm Blood Pressure Position Sitting O2 Sat by Pulse Oximetry 99 98 Oxygen Delivery Method Nasal Cannula Nasal Cannula Oxygen Flow Rate 4 2 Fraction of Inspired Oxygen (FIO2) Telemetry Type Remote Telemetry Telemetry Monitoring Continues Telemetry Heart Rate 112 H Telemetry SPO2 [address] Interval 0.16 EKG QRS Interval 0.05 L Telemetry Strip Reading ST 06/24/24 18:00 06/24/24 19:00 06/24/24 20:00 Temperature 98.4 F Temperature Source Temporal Artery Scan Pulse Rate 108 H Respiratory Rate 20 Blood Pressure 148/96 H Blood Pressure Mean 113 Blood Pressure Location Left Arm Blood Pressure Position Sitting O2 Sat by Pulse Oximetry 98 98 Oxygen Delivery Method Nasal Cannula Nasal Cannula Oxygen Flow Rate 2 2 Fraction of Inspired Oxygen (FIO2) Telemetry Type Bedside Monitor Telemetry Monitoring Continues Telemetry Heart Rate 111 H Telemetry SPO2 [address] Interval 0.19 EKG QRS Interval 0.05 L Telemetry Strip Reading ST 06/24/24 20:00 06/24/24 21:56 06/25/24 01:00 Temperature 98.7 F Temperature Source Temporal Artery Scan Pulse Rate 115 H Respiratory Rate 20 Blood Pressure 152/100 H Blood Pressure Mean 117 Blood Pressure Location Left Arm Blood Pressure Position Sitting O2 Sat by Pulse Oximetry 98 Oxygen Delivery Method Nasal Cannula Nasal Cannula Oxygen Flow Rate 3 2 Fraction of Inspired Oxygen (FIO2) Telemetry Type Bedside Monitor Telemetry Monitoring Continues Telemetry Heart Rate 98 Telemetry SPO2 [address] Interval 0.18 EKG QRS Interval 0.05 L Telemetry Strip Reading SR 06/25/24 02:00 06/25/24 05:07 06/25/24 05:57 Temperature 97.4 F L 98.3 F Temperature Source Oral Temporal Artery Scan Pulse Rate 108 H 106 H Respiratory Rate 20 22 H Blood Pressure 115/86 143/98 H Blood Pressure Mean 95 113 Blood Pressure Location Left Arm Right Arm Blood Pressure Position Supine Supine O2 Sat by Pulse Oximetry 98 98 97 Oxygen Delivery Method Nasal Cannula Nasal Cannula Nasal Cannula Oxygen Flow Rate 2 2 3 Fraction of Inspired Oxygen (FIO2) Telemetry Type Telemetry Monitoring Telemetry Heart Rate Telemetry SPO2 EKG CT Interval EKG QRS Interval Telemetry Strip Reading 06/25/24 07:00 06/25/24 08:00 06/25/24 09:34 Temperature Temperature Source Pulse Rate Respiratory Rate Blood Pressure Blood Pressure Mean Blood Pressure Location Blood Pressure Position O2 Sat by Pulse Oximetry 103 H Oxygen Delivery Method Nasal Cannula Nasal Cannula Oxygen Flow Rate 3 Fraction of Inspired Oxygen (FIO2) 3 Telemetry Type Remote Telemetry Telemetry Monitoring Continues Telemetry Heart Rate [address] Interval 0.15 EKG QRS Interval 0.04 L Telemetry Strip Reading SR Lab Results Lab Results: Lab Results: Last 24 Hours 06/25/24 06/24/24 04:59 05:45 WBC 13.50 H RBC 4.07 L Hgb 12.6 L Hct 39.3 L MCV 96.6 H MCH 31.0 MCHC 32.1 RDW Coeff of Susan 12.4 Plt Count 222 Immature Gran % (Auto) 0.5 Neut % (Auto) 87.3 H Lymph % (Auto) 6.9 L [place] % (Auto) 5.2 Eos % (Auto) 0.0 Baso % (Auto) 0.1 Neut # (Auto) 11.8 H Lymph # (Auto) 0.9 [place] # (Auto) 0.7 Eos # (Auto) 0.0 Baso # (Auto) 0.0 Immature Gran # (Auto) 0.1 Sodium 136.5 Potassium 4.88 Chloride 104.7 Carbon Dioxide 26.4 Anion Gap 10.28 BUN 16.7 Creatinine 0.75 Estimated GFR (MDRD) 107.00 BUN/Creatinine Ratio 22.26 Glucose 146.1 H Calcium 9.10 Total Bilirubin 0.47 AST 41.5 ALT 22.6 Alkaline Phosphatase 75.1 C-Reactive Prot, Quant 9 Total Protein 7.16 Albumin 4.25 Globulin 2.91 Albumin/Globulin Ratio 1.46 Additional Comments Additional Comments: I have independently reviewed and interpreted the labs/EKGs/imaging ordered during this hospital stay. I have reviewed outside records that are available in our EMR that pertain to medical stay including imaging/notes/labs from previous visits. Active Medications Active Medications: Medications Generic Name Dose Route Start Last Admin Trade Name Freq PRN Reason Stop Dose Admin Acetaminophen 650 mg 06/24/24 10:38 Acetaminophen 325 Mg Tablet PO Q4H PRN Mild Pain Albuterol/Ipratropium 3 ml 06/24/24 10:40 06/25/24 09:44 Ipratropium/Albuterol Vial.Neb NEB 3 ml RTQ4H THEO Administration Benzonatate 100 mg 06/24/24 13:43 06/24/24 15:03 Benzonatate 100 Mg Capsule PO 100 mg TID PRN Administration cough Calcium Carbonate/Glycine 500 mg 06/24/24 20:40 06/24/24 21:09 Calcium Carbonate 500 Mg Tab.Chew PO 500 mg Q6H PRN Administration Heartburn Doxycycline Hyclate 100 mg 06/24/24 11:00 06/25/24 08:47 Doxycycline Hyclate 100 Mg Capsule PO 06/28/24 22:00 100 mg Q12HR THEO Administration Enoxaparin Sodium 40 mg 06/25/24 09:00 06/25/24 08:47 Enoxaparin Sodium 40 Mg/0.4 Ml Syr SUBCUT 40 mg DAILY THEO Administration Guaifenesin 600 mg 06/24/24 13:45 06/25/24 08:47 Guaifenesin 600 Mg Tablet.Er PO 600 mg Q12HR THEO Administration Guaifenesin/Dextromethorphan 10 ml 06/24/24 13:43 Guaifenesin/Dextromethorphan 200/20 Mg/10 Ml Cup PO Q4H PRN Cough CEFTRIAXONE/D5W 1 GM PREMIX 1 gm in 50 mls @ 100 mls/hr 06/24/24 11:00 06/25/24 08:48 Rocephin 1 Gm/50 Ml D5w IV 06/27/24 10:59 100 mls/hr DAILY THEO Administration Methylprednisolone Sodium Succinate 40 mg 06/24/24 13:00 06/25/24 06:04 Methylprednisolone Sod Succ/Pf 40 Mg/Ml Vial IVP 40 mg Q8HR THEO Administration Ondansetron HCl 4 mg 06/24/24 10:38 Ondansetron Hcl/Pf 4 Mg/2 Ml Sdv IVP Q6H PRN Nausea / Vomiting Phenol/Menthol 1 spray 06/24/24 11:32 06/24/24 12:04 Phenol 1 Walker Btl MM 1 spray Q2H PRN Administration SORE THROAT Sodium Chloride 1 syr 06/24/24 05:50 06/25/24 06:04 0.9% Sodium Chloride 10 Ml Disp.Syrin IVF 1 syr PRN PRN Administration To flush IV Plan Plan: 1. Acute hypoxic respiratory failure in setting of acute bronchitis - No hx of copd/asthma. Requiring up to 3L. Recent sinus infection. Breathing is less labored at this time. CXR negative. Treat with steroids, rocephin and doxy, duonebs, O2. 2. Acute bronchitis - Plan as above DVT Prophylaxis: Lovenox Review Statement Review Statement: I have personally discussed and reviewed the patient's visit/currently labs/imaging/decision making with Dr. Arreola, my supervising attending. Greater that 50 minutes spent with patient, 50% of the time spent with this patient was devoted to counseling and coordination of care.
[2024-06-25] MEDS ORDERED: BENADRYL PO PRN (16:08)
[2024-06-26 05:20] LABS: BASOPHILS % (AUTO) 0.1 % (0.0-3.0); EOSINOPHILS % (AUTO) 0.1 % (0.0-7.0); HEMATOCRIT 39.2 % (42.0-52.0); HEMOGLOBIN 12.6 g/dl (14.0-18.0); IMMATURE GRANULOCYTE # (AUTO) 0.1 (0.0-1.0); IMMATURE GRANULOCYTE % (AUTO) 0.5 % (0.0-5.0); LYMPHOCYTES # (AUTO) 0.7 K/uL (0.60-3.4); LYMPHOCYTES % (AUTO) 4.7 (10.0-50.0); MEAN CORPUSCULAR HGB CONC 32.1 (31.8-35.4); MEAN CORPUSCULAR VOLUME 96.3 fl (80.0-94.0); MONOCYTES # (AUTO) 0.6 K/uL (0.4-2.0); NEUTROPHILS # (AUTO) 13.4 K/ul (2.0-6.9); NEUTROPHILS % (AUTO) 90.6 % (42.2-75.2); PLATELET COUNT 244 10^3/uL (140-440); RDW COEFFICIENT OF VARIATION 12.4 % (11.6-14.8); RED BLOOD COUNT 4.07 10^6/ul (4.70-6.10); WHITE BLOOD COUNT 14.72 K/ul (4.2-10.2)
[2024-06-26 05:32] LABS: ALANINE AMINOTRANSFERASE 27.4 U/L (0-50); ALBUMIN 3.91 g/dL (3.5-5.0); ASPARTATE AMINO TRANSFERASE 55.8 U/L (17-59); BILIRUBIN,TOTAL 0.38 mg/dL (0.2-1.3); BLOOD UREA NITROGEN 21.7 mg/dL (9-20); CALCIUM 8.85 mg/dL (8.4-10.2); CHLORIDE 103.3 mmol/L (98-107); CREATININE 0.77 mg/dL (0.60-1.10); POTASSIUM 4.31 mmol/L (3.5-5.1); SODIUM 135.2 mmol/L (134.5-145); TOTAL PROTEIN 6.75 g/dL (6.3-8.2)
--- NOTE | 2024-06-26 12:18 | PCM.PROG ---
Date/Time Seen Date Seen by Provider: 06/26/24 Time Seen by Provider: 09:50 Provider Provider[facility] Chivo HANSEN, [facility] Chief Complaint Chief Complaint: ACUTE EXACERBATION ASTHMA, ACUTE HYPOXEMIA, Subjective Subjective: Patient reports feeling better today. Reports still having shortness of breath with activity. Non productive cough. No chest pain or fevers. Objective Appearance: Positive No Apparent Distress and Alert and Oriented x3 Chest/Lungs: Positive Symmetrical With Equal Breath Sounds and Wheezes Heart: Positive RRR and Pulses Normal GI/: Positive Soft, Nontender, Bowel Sounds Normal and No Distention Musculoskeletal: Positive Other (pedal pulses palpable, no edema to lower extremities) Neurological: Positive Cranial Nerves Intact, Alert and Oriented Vital Signs Vital Signs: Vital Signs: Last 24 Hours 06/25/24 13:00 06/25/24 14:00 06/25/24 14:00 Temperature 98.3 F Temperature Source Temporal Artery Scan Pulse Rate 95 Respiratory Rate 20 Blood Pressure 135/92 H Blood Pressure Mean 106 Blood Pressure Location Left Arm Blood Pressure Position O2 Sat by Pulse Oximetry 97 93 L Oxygen Delivery Method Room Air Nasal Cannula Oxygen Flow Rate 3 Telemetry Type Bedside Monitor Telemetry Monitoring Continues Irregular Telemetry Rate (Approximate) 100-110 BPM Telemetry Heart Rate 107 H Telemetry SPO2 95 EKG IN Interval 0.17 EKG QRS Interval 0.88 H Telemetry Strip Reading 1300 SR 06/25/24 19:00 06/25/24 19:49 06/25/24 20:00 Temperature Temperature Source Pulse Rate Respiratory Rate Blood Pressure Blood Pressure Mean Blood Pressure Location Blood Pressure Position O2 Sat by Pulse Oximetry 96 Oxygen Delivery Method Nasal Cannula Nasal Cannula Oxygen Flow Rate 3 3 Telemetry Type Remote Telemetry Telemetry Monitoring Continues Irregular Telemetry Rate (Approximate) Telemetry Heart Rate 101 H Telemetry SPO2 94 EKG IN Interval 0.17 EKG QRS Interval 0.[address] 06/25/24 21:58 06/26/24 01:00 06/26/24 05:11 Temperature 98.7 F 98.6 F Temperature Source Temporal Artery Scan Temporal Artery Scan Pulse Rate 94 87 Respiratory Rate 20 20 Blood Pressure 138/82 136/84 Blood Pressure Mean 100 101 Blood Pressure Location Left Arm Left Arm Blood Pressure Position Sitting Supine O2 Sat by Pulse Oximetry 94 L 94 L Oxygen Delivery Method Nasal Cannula Nasal Cannula Oxygen Flow Rate 3 3 Telemetry Type Remote Telemetry Telemetry Monitoring Continues Irregular Telemetry Rate (Approximate) Telemetry Heart Rate 96 Telemetry SPO2 94 EKG IN Interval 0.17 EKG QRS Interval 0.07 Telemetry Strip Reading SR 06/26/24 05:16 06/26/24 07:00 06/26/24 08:00 Temperature Temperature Source Pulse Rate Respiratory Rate Blood Pressure Blood Pressure Mean Blood Pressure Location Blood Pressure Position O2 Sat by Pulse Oximetry 94 L Oxygen Delivery Method Nasal Cannula Nasal Cannula Oxygen Flow Rate 3 3 Telemetry Type Remote Telemetry Telemetry Monitoring Continues Irregular Telemetry Rate (Approximate) Telemetry Heart Rate 98 Telemetry SPO2 98 EKG IN Interval 0.16 EKG QRS Interval 0.06 Telemetry Strip Reading SR 06/26/24 10:00 06/26/24 10:24 Temperature Temperature Source Pulse Rate Respiratory Rate Blood Pressure Blood Pressure Mean Blood Pressure Location Blood Pressure Position O2 Sat by Pulse Oximetry 94 L 94 L Oxygen Delivery Method Nasal Cannula Nasal Cannula Oxygen Flow Rate 3 3 Telemetry Type Telemetry Monitoring Irregular Telemetry Rate (Approximate) Telemetry Heart Rate Telemetry SPO2 EKG IN Interval EKG QRS Interval Telemetry Strip Reading Lab Results Lab Results: Lab Results: Last 24 Hours 06/26/24 05:13 WBC 14.72 H RBC 4.07 L Hgb 12.6 L Hct 39.2 L MCV 96.3 H MCH 31.0 MCHC 32.1 RDW Coeff of Susan 12.4 Plt Count 244 Immature Gran % (Auto) 0.5 Neut % (Auto) 90.6 H Lymph % (Auto) 4.7 L [place] % (Auto) 4.0 Eos % (Auto) 0.1 Baso % (Auto) 0.1 Neut # (Auto) 13.4 H Lymph # (Auto) 0.7 [place] # (Auto) 0.6 Eos # (Auto) 0.0 Baso # (Auto) 0.0 Immature Gran # (Auto) 0.1 Sodium 135.2 Potassium 4.31 Chloride 103.3 Carbon Dioxide 23.0 Anion Gap 13.21 BUN 21.7 H Creatinine 0.77 Estimated GFR (MDRD) 103.00 BUN/Creatinine Ratio 28.18 Glucose 149.0 H Calcium 8.85 Total Bilirubin 0.38 AST 55.8 ALT 27.4 Alkaline Phosphatase 62.0 Total Protein 6.75 Albumin 3.91 Globulin 2.84 Albumin/Globulin Ratio 1.37 Additional Comments Additional Comments: I have independently reviewed and interpreted the labs/EKGs/imaging ordered during this hospital stay. I have reviewed outside records that are available in our EMR that pertain to medical stay including imaging/notes/labs from previous visits. Active Medications Active Medications: Medications Generic Name Dose Route Start Last Admin Trade Name Freq PRN Reason Stop Dose Admin Acetaminophen 650 mg 06/24/24 10:38 Acetaminophen 325 Mg Tablet PO Q4H PRN Mild Pain Albuterol/Ipratropium 3 ml 06/24/24 10:40 06/26/24 10:13 Ipratropium/Albuterol Vial.Neb NEB 3 ml RTQ4H THEO Administration Benzonatate 100 mg 06/24/24 13:43 06/24/24 15:03 Benzonatate 100 Mg Capsule PO 100 mg TID PRN Administration cough Calcium Carbonate/Glycine 500 mg 06/24/24 20:40 06/24/24 21:09 Calcium Carbonate 500 Mg Tab.Chew PO 500 mg Q6H PRN Administration Heartburn Diphenhydramine HCl 25 mg 06/25/24 16:08 Diphenhydramine Hcl 25 Mg Capsule PO BEDTIME PRN insomnia Doxycycline Hyclate 100 mg 06/24/24 11:00 06/26/24 08:53 Doxycycline Hyclate 100 Mg Capsule PO 06/28/24 22:00 100 mg Q12HR THEO Administration Enoxaparin Sodium 40 mg 06/25/24 09:00 06/26/24 08:47 Enoxaparin Sodium 40 Mg/0.4 Ml Syr SUBCUT 40 mg DAILY THEO Administration Guaifenesin 600 mg 06/24/24 13:45 06/26/24 08:51 Guaifenesin 600 Mg Tablet.Er PO 600 mg Q12HR THEO Administration Guaifenesin/Dextromethorphan 10 ml 06/24/24 13:43 Guaifenesin/Dextromethorphan 200/20 Mg/10 Ml Cup PO Q4H PRN Cough CEFTRIAXONE/D5W 1 GM PREMIX 1 gm in 50 mls @ 100 mls/hr 06/24/24 11:00 06/26/24 08:41 Rocephin 1 Gm/50 Ml D5w IV 06/27/24 10:59 100 mls/hr DAILY THEO Administration Melatonin 6 mg 06/25/24 16:08 Melatonin 3 Mg Tablet PO BEDTIME PRN Insomnia Methylprednisolone Sodium Succinate 40 mg 06/24/24 13:00 06/26/24 05:10 Methylprednisolone Sod Succ/Pf 40 Mg/Ml Vial IVP 40 mg Q8HR THEO Administration Ondansetron HCl 4 mg 06/24/24 10:38 Ondansetron Hcl/Pf 4 Mg/2 Ml Sdv IVP Q6H PRN Nausea / Vomiting Phenol/Menthol 1 spray 06/24/24 11:32 06/24/24 12:04 Phenol 1 [place] Btl MM 1 spray Q2H PRN Administration SORE THROAT Sodium Chloride 1 syr 06/24/24 05:50 06/25/24 06:04 0.9% Sodium Chloride 10 Ml Disp.Syrin IVF 1 syr PRN PRN Administration To flush IV Plan Plan: 1. Acute hypoxic respiratory failure in setting of acute bronchitis - No hx of copd/asthma. - continue IV solumedrol, nebs as well as IV rocephin and Doxy. - RT following, currently at 3L nc, wean when possible 2. Acute bronchitis - - Plan as above DVT Prophylaxis: Lovenox Review Statement Review Statement: I have personally discussed and reviewed the patient's visit/currently labs/imaging/decision making with Dr. Arreola, my supervising attending. Greater that 50 minutes spent with patient, 50% of the time spent with this patient was devoted to counseling and coordination of care.
[2024-06-27 05:31] LABS: BASOPHILS % (AUTO) 0.1 % (0.0-3.0); EOSINOPHILS % (AUTO) 0.1 % (0.0-7.0); HEMATOCRIT 38.3 % (42.0-52.0); HEMOGLOBIN 12.2 g/dl (14.0-18.0); IMMATURE GRANULOCYTE # (AUTO) 0.1 (0.0-1.0); IMMATURE GRANULOCYTE % (AUTO) 0.7 % (0.0-5.0); LYMPHOCYTES # (AUTO) 0.9 K/uL (0.60-3.4); LYMPHOCYTES % (AUTO) 6.6 (10.0-50.0); MEAN CORPUSCULAR HEMOGLOBIN 30.3 pg (27.0-31.0); MEAN CORPUSCULAR HGB CONC 31.9 (31.8-35.4); MEAN CORPUSCULAR VOLUME 95.3 fl (80.0-94.0); MONOCYTES # (AUTO) 0.9 K/uL (0.4-2.0); MONOCYTES % (AUTO) 6.6 (0-10); NEUTROPHILS # (AUTO) 11.1 K/ul (2.0-6.9); NEUTROPHILS % (AUTO) 85.9 % (42.2-75.2); PLATELET COUNT 231 10^3/uL (140-440); RDW COEFFICIENT OF VARIATION 12.2 % (11.6-14.8); RED BLOOD COUNT 4.02 10^6/ul (4.70-6.10); WHITE BLOOD COUNT 12.96 K/ul (4.2-10.2)
[2024-06-27 05:43] LABS: ALBUMIN 3.79 g/dL (3.5-5.0); ALKALINE PHOSPHATASE 59.4 U/L (56-119); ASPARTATE AMINO TRANSFERASE 47.5 U/L (17-59); BILIRUBIN,TOTAL 0.32 mg/dL (0.2-1.3); BLOOD UREA NITROGEN 21.9 mg/dL (9-20); CALCIUM 8.8 mg/dL (8.4-10.2); CARBON DIOXIDE 21.3 mmol/L (22-30.0); CHLORIDE 104.8 mmol/L (98-107); CREATININE 0.78 mg/dL (0.60-1.10); GLUCOSE 126.6 mg/dL (74-106); POTASSIUM 4.33 mmol/L (3.5-5.1); SODIUM 135.6 mmol/L (134.5-145); TOTAL PROTEIN 6.51 g/dL (6.3-8.2)
--- NOTE | 2024-06-27 09:45 | CT ---
EXAM: CT ANGIOGRAM CHEST. HISTORY: Hypoxia. COMPARISON: Radiograph 06/24/2024. TECHNIQUE: Multiple axial images of the chest were obtained following intravenous administration of 100 mL Omnipaque 350, low osmolar. Images were reformatted in the sagittal and coronal plane. 3-D a nd maximum intensity projection reformatted images were created on an independent workstation. FINDINGS: No pulmonary arterial filling defect is seen. There is no main pulmonary artery enlargeme nt or right heart strain. There is no aortic dissection. Aortic and coronary artery calcifications present. Heart size at the upper limits of normal. The partially calcified lymph nodes in the media stinum and hilar regions. No himanshu lymphadenopathy Calcified granulomatous changes present bilaterally. There are focal ground-glass opacities anterior right upper lobe series nine image 34. Small focus subpleural ground-glass opacities posterior left lower lobe and 57. Bilateral lower lobe bronchial thickening with areas of endobronchial occlusion and distal consolidation noted. There is no pleural effusion or pneumothorax. No acute abnormality identified in the upper abdomen. Degenerative changes present in the spine. Old right rib fractures noted. IMPRESSION: 1. No pulmonary embolus. 2. Bilateral lower lobe pneumonia. Right upper lobe ground-glass opacities may also represent pneum onia. 3. Evidence of prior granulomatous disease. 4. Follow-up chest CT within 3 months recommended for reassessment. All CT scans are performed using dose optimization techniques as appropriate to the performed exam an d include at least one of the following: Automated exposure control, adjustment of the mA and/or kV according t o size, and the use of iterative reconstruction technique.
--- NOTE | 2024-06-27 10:26 | PCM.PROG ---
Date/Time Seen Date Seen by Provider: 06/27/24 Time Seen by Provider: 08:40 Provider Provider: ANA ROSA WADDELL PA-C, [facility] Chief Complaint Chief Complaint: ACUTE EXACERBATION ASTHMA, ACUTE HYPOXEMIA, Subjective Subjective: Patient is feeling better overall, has been ambulatory with mild exertion. He still is requiring 3L. Worried about going to work next week. Objective Appearance: Positive No Apparent Distress and Alert and Oriented x3 Chest/Lungs: Positive Symmetrical With Equal Breath Sounds and Wheezes (improved ) Heart: Positive RRR and Pulses Normal GI/: Positive Soft, Nontender, Bowel Sounds Normal and No Distention Musculoskeletal: Positive Other (pedal pulses palpable, no edema to lower extremities) Neurological: Positive Cranial Nerves Intact, Alert and Oriented Vital Signs Vital Signs: Vital Signs: Last 24 Hours 06/26/24 10:24 06/26/24 13:00 06/26/24 13:17 Temperature Temperature Source Pulse Rate Respiratory Rate Blood Pressure Blood Pressure Mean Blood Pressure Location Blood Pressure Position O2 Sat by Pulse Oximetry 94 L 96 Oxygen Delivery Method Nasal Cannula Nasal Cannula Oxygen Flow Rate 3 2 Telemetry Type Remote Telemetry Telemetry Monitoring Continues Telemetry Heart Rate 107 H Telemetry SPO2 97 EKG ME Interval 0.12 EKG QRS Interval 0.04 L Telemetry Strip Reading ST 06/26/24 13:35 06/26/24 14:00 06/26/24 19:00 Temperature 97.7 F Temperature Source Oral Pulse Rate 98 Respiratory Rate 20 Blood Pressure 140/91 H Blood Pressure Mean 107 Blood Pressure Location Right Arm Blood Pressure Position Sitting O2 Sat by Pulse Oximetry 96 94 L Oxygen Delivery Method Nasal Cannula Nasal Cannula Oxygen Flow Rate 2 2 Telemetry Type Remote Telemetry Telemetry Monitoring Continues Telemetry Heart Rate 111 H Telemetry SPO2 93 EKG ME Interval 0.18 EKG QRS Interval 0.[address] 06/26/24 19:31 06/26/24 20:00 06/26/24 21:55 Temperature 98.6 F Temperature Source Temporal Artery Scan Pulse Rate 104 H Respiratory Rate 18 Blood Pressure 148/93 H Blood Pressure Mean 111 Blood Pressure Location Left Arm Blood Pressure Position Supine O2 Sat by Pulse Oximetry 91 L 94 L Oxygen Delivery Method Nasal Cannula Nasal Cannula Nasal Cannula Oxygen Flow Rate 2 2 3 Telemetry Type Telemetry Monitoring Telemetry Heart Rate Telemetry SPO2 EKG ME Interval EKG QRS Interval Telemetry Strip Reading 06/27/24 01:00 06/27/24 05:11 06/27/24 05:19 Temperature 99.0 F Temperature Source Temporal Artery Scan Pulse Rate 98 Respiratory Rate 20 Blood Pressure 142/89 H Blood Pressure Mean 106 Blood Pressure Location Left Arm Blood Pressure Position Supine O2 Sat by Pulse Oximetry 93 L 93 L Oxygen Delivery Method Nasal Cannula Nasal Cannula Oxygen Flow Rate 3 3 Telemetry Type Remote Telemetry Telemetry Monitoring Continues Telemetry Heart Rate 100 Telemetry SPO2 96 EKG ME Interval 0.19 EKG QRS Interval 0.08 Telemetry Strip Reading SR 06/27/24 07:00 06/27/24 08:00 Temperature Temperature Source Pulse Rate Respiratory Rate Blood Pressure Blood Pressure Mean Blood Pressure Location Blood Pressure Position O2 Sat by Pulse Oximetry Oxygen Delivery Method Nasal Cannula Oxygen Flow Rate 3 Telemetry Type Remote Telemetry Telemetry Monitoring Continues Telemetry Heart Rate 86 Telemetry SPO2 96 EKG ME Interval 0.16 EKG QRS Interval 0.08 Telemetry Strip Reading SR Lab Results Lab Results: Lab Results: Last 24 Hours 06/27/24 05:20 WBC 12.96 H RBC 4.02 L Hgb 12.2 L Hct 38.3 L MCV 95.3 H MCH 30.3 MCHC 31.9 RDW Coeff of Susan 12.2 Plt Count 231 Immature Gran % (Auto) 0.7 Neut % (Auto) 85.9 H Lymph % (Auto) 6.6 L [place] % (Auto) 6.6 Eos % (Auto) 0.1 Baso % (Auto) 0.1 Neut # (Auto) 11.1 H Lymph # (Auto) 0.9 [place] # (Auto) 0.9 Eos # (Auto) 0.0 Baso # (Auto) 0.0 Immature Gran # (Auto) 0.1 Sodium 135.6 Potassium 4.33 Chloride 104.8 Carbon Dioxide 21.3 L Anion Gap 13.83 BUN 21.9 H Creatinine 0.78 Estimated GFR (MDRD) 102.00 BUN/Creatinine Ratio 28.07 Glucose 126.6 H Calcium 8.80 Total Bilirubin 0.32 AST 47.5 ALT 30.0 Alkaline Phosphatase 59.4 Total Protein 6.51 Albumin 3.79 Globulin 2.72 Albumin/Globulin Ratio 1.39 Additional Comments Additional Comments: I have independently reviewed and interpreted the labs/EKGs/imaging ordered dur ing this hospital stay. I have reviewed outside records that are available in our EMR that pertain to medical stay including imaging/notes/labs from previous visits. EXAM: CT ANGIOGRAM CHEST. HISTORY: Hypoxia. COMPARISON: Radiograph 06/24/2024. TECHNIQUE: Multiple axial images of the chest were obtained following intravenous administration of 100 mL Omnipaque 350, low osmolar. Images were reformatted in the sagittal and coronal plane. 3-D and maximum intensity projection reformatted images were created on an independent workstation. FINDINGS: No pulmonary arterial filling defect is seen. There is no main pulmonary artery enlargement or right heart strain. There is no aortic dissection. Aortic and coronary artery calcifications present. Heart size at the upper limits of normal. The partially calcified lymph nodes in the mediastinum and hilar regions. No himanshu lymphadenopathy Calcified granulomatous changes present bilaterally. There are focal ground- glass opacities anterior right upper lobe series nine image 34. Small focus subpleural ground-glass opacities posterior left lower lobe and 57. Bilateral lower lobe bronchial thickening with areas of endobronchial occlusion and distal consolidation noted. There is no pleural effusion or pneumothorax. No acute abnormality identified in the upper abdomen. Degenerative changes present in the spine. Old right rib fractures noted. IMPRESSION: 1. No pulmonary embolus. 2. Bilateral lower lobe pneumonia. Right upper lobe ground-glass opacities may also represent pneumonia. 3. Evidence of prior granulomatous disease. 4. Follow-up chest CT within 3 months recommended for reassessment. Active Medications Active Medications: Medications Generic Name Dose Route Start Last Admin Trade Name Freq PRN Reason Stop Dose Admin Acetaminophen 650 mg 06/24/24 10:38 Acetaminophen 325 Mg Tablet PO Q4H PRN Mild Pain Albuterol/Ipratropium 3 ml 06/27/24 10:21 Ipratropium/Albuterol Vial.Neb NEB RTQ4H PRN Shortness of breath Benzonatate 100 mg 06/24/24 13:43 06/24/24 15:03 Benzonatate 100 Mg Capsule PO 100 mg TID PRN Administration cough Calcium Carbonate/Glycine 500 mg 06/24/24 20:40 06/24/24 21:09 Calcium Carbonate 500 Mg Tab.Chew PO 500 mg Q6H PRN Administration Heartburn Diphenhydramine HCl 25 mg 06/25/24 16:08 Diphenhydramine Hcl 25 Mg Capsule PO BEDTIME PRN insomnia Doxycycline Hyclate 100 mg 06/24/24 11:00 06/27/24 08:32 Doxycycline Hyclate 100 Mg Capsule PO 06/28/24 22:00 100 mg Q12HR THEO Administration Enoxaparin Sodium 40 mg 06/25/24 09:00 06/27/24 08:32 Enoxaparin Sodium 40 Mg/0.4 Ml Syr SUBCUT 40 mg DAILY THEO Administration Guaifenesin 600 mg 06/24/24 13:45 06/27/24 08:32 Guaifenesin 600 Mg Tablet.Er PO 600 mg Q12HR THEO Administration Guaifenesin/Dextromethorphan 10 ml 06/24/24 13:43 Guaifenesin/Dextromethorphan 200/20 Mg/10 Ml Cup PO Q4H PRN Cough CEFTRIAXONE/D5W 1 GM PREMIX 1 gm in 50 mls @ 100 mls/hr 06/24/24 11:00 06/27/24 09:19 Rocephin 1 Gm/50 Ml D5w IV 06/27/24 10:59 100 mls/hr DAILY THEO Administration Melatonin 6 mg 06/25/24 16:08 Melatonin 3 Mg Tablet PO BEDTIME PRN Insomnia Methylprednisolone Sodium Succinate 40 mg 06/24/24 13:00 06/27/24 05:03 Methylprednisolone Sod Succ/Pf 40 Mg/Ml Vial IVP 40 mg Q8HR THEO Administration Ondansetron HCl 4 mg 06/24/24 10:38 Ondansetron Hcl/Pf 4 Mg/2 Ml Sdv IVP Q6H PRN Nausea / Vomiting Phenol/Menthol 1 spray 06/24/24 11:32 06/24/24 12:04 Phenol 1 [place] Btl MM 1 spray Q2H PRN Administration SORE THROAT Sodium Chloride 1 syr 06/24/24 05:50 06/26/24 20:10 0.9% Sodium Chloride 10 Ml Disp.Syrin IVF 1 syr PRN PRN Administration To flush IV Plan Plan: 1. Acute hypoxic respiratory failure in setting of bilateral CAP - No hx of copd/asthma. - continue IV solumedrol, nebs as well as IV rocephin and Doxy. - RT following, currently at 3L nc, wean when possible 2. Bilateral CAP - Plan as above CTA ordered to r/o underlying etiology as patient has continued to require 3L despite improvement in breathing. CTA showed bilateral pna. He has been covered for CAP with abx since admission, will continue the same. This was likely presen t on admission and just not picked up on CXR. DVT Prophylaxis: Lovenox Review Statement Review Statement: I have personally discussed and reviewed the patient's visit/currently labs/imaging/decision making with Dr. Arreola, my supervising attending. Greater that 50 minutes spent with patient, 50% of the time spent with this patient was devoted to counseling and coordination of care.
[2024-06-27] MEDS: MELATONIN PO PRN (20:18)
[2024-06-28] MEDS: DUONEB NEB PRN (02:36)
[2024-06-28 05:14] LABS: BASOPHILS % (AUTO) 0.1 % (0.0-3.0); HEMATOCRIT 37.3 % (42.0-52.0); IMMATURE GRANULOCYTE # (AUTO) 0.1 (0.0-1.0); IMMATURE GRANULOCYTE % (AUTO) 0.6 % (0.0-5.0); LYMPHOCYTES # (AUTO) 0.9 K/uL (0.60-3.4); LYMPHOCYTES % (AUTO) 9.5 (10.0-50.0); MEAN CORPUSCULAR HEMOGLOBIN 30.5 pg (27.0-31.0); MEAN CORPUSCULAR HGB CONC 32.2 (31.8-35.4); MEAN CORPUSCULAR VOLUME 94.7 fl (80.0-94.0); MONOCYTES # (AUTO) 0.7 K/uL (0.4-2.0); MONOCYTES % (AUTO) 7.3 (0-10); NEUTROPHILS # (AUTO) 8.2 K/ul (2.0-6.9); NEUTROPHILS % (AUTO) 82.5 % (42.2-75.2); PLATELET COUNT 218 10^3/uL (140-440); RDW COEFFICIENT OF VARIATION 11.9 % (11.6-14.8); RED BLOOD COUNT 3.94 10^6/ul (4.70-6.10)
[2024-06-28 05:19] LABS: ALANINE AMINOTRANSFERASE 36.4 U/L (0-50); ALBUMIN 3.42 g/dL (3.5-5.0); ASPARTATE AMINO TRANSFERASE 42.1 U/L (17-59); BILIRUBIN,TOTAL 0.47 mg/dL (0.2-1.3); BLOOD UREA NITROGEN 23.1 mg/dL (9-20); CALCIUM 8.32 mg/dL (8.4-10.2); CARBON DIOXIDE 22.7 mmol/L (22-30.0); CHLORIDE 104.5 mmol/L (98-107); CREATININE 0.75 mg/dL (0.60-1.10); GLUCOSE 130.4 mg/dL (74-106); POTASSIUM 4.25 mmol/L (3.5-5.1); SODIUM 133.7 mmol/L (134.5-145); TOTAL PROTEIN 6.2 g/dL (6.3-8.2)
[2024-06-28 05:20] VITALS: BP 136/87; PULSE 72; RESP 18; TEMP 97.8
[2024-06-28] MEDS: OMNIPAQUE 350 MG/ML 100ML IVP ONE (07:20)
--- NOTE | 2024-06-28 09:04 | DCSUM ---
Admission Date Admission Date: 06/24/24 Discharge Date Discharge Date: 06/28/24 Admission Diagnosis Admission Diagnosis: 1. Acute hypoxic respiratory failure Discharge Diagnosis Discharge Diagnosis: 1. Acute hypoxic respiratory failure in setting of bilateral CAP - Improved 2. Bilateral CAP - Plan as above Hospital Provider Hospital Provider: ANA ROSA WADDELL PA-C, [facility] Physician Primary Care Physician: GLENDA PHILIP Summary of History and Physical Summary of History and Physical: Patient is a 59 year old male from home with no significant pmhx who presents to ER for worsening SOB. Patient states he had nasal polyps removed in April. He has stents removed and developed a sinus infection. Then feels as though it's gone to his chest. Last few nights he can't lie flat to sleep due to SOB. He came into the ER in critical condition tachypneic, hypoxic in the low 80s, and tachycardic. He received abx, steroids, magnesium, several breathing treatments. He was on 6L and started to feel better. Pt denies hx of COPD/asthma. No smoking. States he took 5 doses of clindamycin he had left over at home without relief. He is admitted to [facility]. Reevaluated patient multiple times since admission, he is able to speak full sentences but still very tight and wheezing. Eating lunch without difficulty. B ecame very sob trying to ambulate to bathroom and required turning oxygen up. Hospital Course Subjective: Patient was treated with rocephin, doxy, and solumedrol. He required up to 6L but this was weaned to 2-3L. He was not able to wean to RA without dropping to upper 80s on 06/27. CTA performed confirming bilateral pneumonia, no PE. He has been ambulatory within the department, doing much better. He is hoping to go home today. Today he has weaned to RA and did not qualify for home O2. Advised to take this week off of work. Recommend f/u with pcp prior to returning to work. Will send in 2 more days of cefdinir, doxy, steroids, and albuterol inhaler. Recommend repeat chest CT in 3 months per rad report. Pt agrees to plan of care. Appearance: Pleasant, No Apparent Distress and Alert HEENT: MMM and Supple CVS: Other (RRR) Abdomen: Soft, Non-Tender and No Distention Respiratory: No Accessory Muscle Use Extremities: No Edema Vital Signs: Most Recent Vital Signs Temperature 97.8 F 06/28/24 05:18 Temperature Source Oral 06/28/24 05:18 Temperature Source Oral 06/24/24 05:29 Pulse Rate 72 06/28/24 05:18 Respiratory Rate 18 06/28/24 05:18 Blood Pressure 136/87 06/28/24 05:18 Blood Pressure Mean 103 06/28/24 05:18 Blood Pressure Left Arm 155/102 06/24/24 09:22 Blood Pressure Location Right Arm 06/28/24 05:18 Blood Pressure Position Supine 06/28/24 05:18 O2 Sat by Pulse Oximetry 96 06/28/24 07:54 Oxygen Delivery Method Nasal Cannula 06/28/24 07:54 Oxygen Flow Rate 2 06/28/24 07:54 Fraction of Inspired Oxygen (FIO2) 3 06/25/24 08:00 Height 5 ft 10 in 06/24/24 09:22 Weight 82.4 kg 06/24/24 09:22 Telemetry Type Bedside Monitor 06/28/24 07:00 Telemetry Monitoring Continues 06/28/24 07:00 Irregular Telemetry Rate (Approximate) 60-70 BPM 06/28/24 07:00 Telemetry Heart Rate 65 06/28/24 07:00 Telemetry SPO2 97 06/28/24 07:00 EKG MI Interval 0.14 06/28/24 07:00 EKG QRS Interval 0.09 06/28/24 07:00 Telemetry Strip Reading NSR 06/28/24 07:00 Imaging: EXAM: FRONTAL VIEW OF THE CHEST. HISTORY: Shortness of air. COMPARISON: None. FINDINGS: Multiple scattered calcified granulomas in the lungs. Aortic calcifications. Normal heart size. No acute consolidation. No visible pleural effusion or pneumothorax. Chronic-appearing right-sided rib fractures. Multilevel degenerative spondylosis. Small round metal foreign object projects over the right upper extremity. IMPRESSION: No acute finding in the chest. EXAM: CT ANGIOGRAM CHEST. HISTORY: Hypoxia. COMPARISON: Radiograph 06/24/2024. TECHNIQUE: Multiple axial images of the chest were obtained following intravenous administration of 100 mL Omnipaque 350, low osmolar. Images were reformatted in the sagittal and coronal plane. 3-D and maximum intensity projection reformatted images were created on an independent workstation. FINDINGS: No pulmonary arterial filling defect is seen. There is no main pulmonary artery enlargement or right heart strain. There is no aortic dissection. Aortic and coronary artery calcifications present. Heart size at the upper limits of normal. The partially calcified lymph nodes in the mediastinum and hilar regions. No himanshu lymphadenopathy Calcified granulomatous changes present bilaterally. There are focal ground- glass opacities anterior right upper lobe series nine image 34. Small focus subpleural ground-glass opacities posterior left lower lobe and 57. Bilateral lower lobe bronchial thickening with areas of endobronchial occlusion and distal consolidation noted. There is no pleural effusion or pneumothorax. No acute abnormality identified in the upper abdomen. Degenerative changes present in the spine. Old right rib fractures noted. IMPRESSION: 1. No pulmonary embolus. 2. Bilateral lower lobe pneumonia. Right upper lobe ground-glass opacities may also represent pneumonia. 3. Evidence of prior granulomatous disease. 4. Follow-up chest CT within 3 months recommended for reassessment. Lab Results Last 24 Hours: 06/28/24 04:59 WBC 9.90 RBC 3.94 L Hgb 12.0 L Hct 37.3 L MCV 94.7 H MCH 30.5 MCHC 32.2 RDW Coeff of Susan 11.9 Plt Count 218 Immature Gran % (Auto) 0.6 Neut % (Auto) 82.5 H Lymph % (Auto) 9.5 L [place] % (Auto) 7.3 Eos % (Auto) 0.0 Baso % (Auto) 0.1 Neut # (Auto) 8.2 H Lymph # (Auto) 0.9 [place] # (Auto) 0.7 Eos # (Auto) 0.0 Baso # (Auto) 0.0 Immature Gran # (Auto) 0.1 Sodium 133.7 L Potassium 4.25 Chloride 104.5 Carbon Dioxide 22.7 Anion Gap 10.75 BUN 23.1 H Creatinine 0.75 Estimated GFR (MDRD) 107.00 BUN/Creatinine Ratio 30.80 Glucose 130.4 H Calcium 8.32 L Total Bilirubin 0.47 AST 42.1 ALT 36.4 Alkaline Phosphatase 53.0 L Total Protein 6.20 L Albumin 3.42 L Globulin 2.78 Albumin/Globulin Ratio 1.23 Discharge Instructions Discharge Planning: Discharge Planning > [address] Melissa Arreola. Discharge Medications: Medications at Discharge (Home Meds & RX) 1 [No Reported Medications] 06/24/24 Discharge Plan Discharge Discharge Orders: Discharge Patient (ONCE); Ordered 06/28/24 Ordered By: ANA ROSA WADDELL Activity Restrictions/Additional Instructions: DISCHARGE TO HOME DX: PNEUMONIA CALL PCP OFFICE TOMORROW FOR APPOINTMENT SEE PCP PRIOR TO RETURNING TO WORK PHARMACY: [facility] Instructions: Doxycycline (By mouth), Cefdinir (By mouth), Acute Respiratory Failure (GEN) Care Plan Goals: Problem: Impaired Respiratory Status Goal: Exhibit optimal respiratory function Instructions: Activities as tolerated Apply oxygen as ordered Elevate head of bed Notify MD of increased congestion Patient Disposition: HOME SELF-CARE Prescriptions: New cefdinir 300 mg capsule 300 mg PO BID 2 Days Qty: 4 0RF Rx Instructions: START 06/29 doxycycline hyclate 100 mg capsule 100 mg PO BID 2 Days Qty: 4 0RF albuterol sulfate 90 mcg/actuation HFA aerosol inhaler 2 puff inhalation Q4-6H PRN (Reason: SOB) Qty: 6.7 0RF methylprednisolone [Medrol (Anil)] 4 mg tablets,dose pack See Rx Instructions .ROUTE .COMPLEX Qty: 21 0RF Rx Instructions: orally per package directions Did you review [place] RAILROAD WHEELS AND AX[employer] INSPECTOR for ALL controlled substances?: Not Applicable Discussed opioids are addictive and Narcan is available by prescription or from pharmacy.: No Condition: Stable
== END 2024-06-28 12:30 | disposition home or self-care (01) | DRG 189 ==
LOC: ED 05:29 → SCU 08:45
PROVIDERS: ADMIT Hospitalist; ATTEND Physician Assistant

== ENCOUNTER 2024-09-05 14:46 | Inpatient (IN) ==
[2024-09-05 15:59] LABS: MOLECULAR FLU A NEGATIVE BY NAAT (NEGATIVE); MOLECULAR FLU B NEGATIVE BY NAAT (NEGATIVE); SARS COV-2 RNA RAPID NAAT NEGATIVE (NEGATIVE)
[2024-09-05 16:00] LABS: BASOPHILS # (AUTO) 0.1 K/uL (0-0.2); BASOPHILS % (AUTO) 0.8 % (0.0-3.0); EOSINOPHILS % (AUTO) 22.4 % (0.0-7.0); HEMATOCRIT 43.9 % (42.0-52.0); HEMOGLOBIN 14.5 g/dl (14.0-18.0); IMMATURE GRANULOCYTE % (AUTO) 0.1 % (0.0-5.0); LYMPHOCYTES # (AUTO) 2.2 K/uL (0.60-3.4); LYMPHOCYTES % (AUTO) 24.8 (10.0-50.0); MEAN CORPUSCULAR HEMOGLOBIN 30.1 pg (27.0-31.0); MEAN CORPUSCULAR VOLUME 91.3 fl (80.0-94.0); MONOCYTES # (AUTO) 0.8 K/uL (0.4-2.0); MONOCYTES % (AUTO) 8.5 (0-10); NEUTROPHILS # (AUTO) 3.8 K/ul (2.0-6.9); NEUTROPHILS % (AUTO) 43.4 % (42.2-75.2); PLATELET COUNT 267 10^3/uL (140-440); RDW COEFFICIENT OF VARIATION 12.3 % (11.6-14.8); RED BLOOD COUNT 4.81 10^6/ul (4.70-6.10); WHITE BLOOD COUNT 8.82 K/ul (4.2-10.2)
[2024-09-05 16:05] LABS: ABG O2 HGB 95.7 % (95-100); BEecf -3.3 (-2.0-3.0); COHb 2.5 (0.5-1.5); HCO3 19.6 (21-28); MetHb 1.3 (0-1.5); TCO2 20.3 (19-24); sO2 98.6 % (94-98); tHb 15.3 g/dl (11.7-17.4)
[2024-09-05 16:08] LABS: ALANINE AMINOTRANSFERASE 23.2 U/L (0-50); ALBUMIN 4.36 g/dL (3.5-5.0); ALKALINE PHOSPHATASE 74.5 U/L (56-119); ASPARTATE AMINO TRANSFERASE 27.5 U/L (17-59); BILIRUBIN,TOTAL 0.53 mg/dL (0.2-1.3); BLOOD UREA NITROGEN 15.5 mg/dL (9-20); CALCIUM 9.33 mg/dL (8.4-10.2); CARBON DIOXIDE 19.9 mmol/L (22-30.0); CREATININE 0.77 mg/dL (0.60-1.10); GLUCOSE 95.3 mg/dL (74-106); POTASSIUM 4.05 mmol/L (3.5-5.1); SODIUM 134.7 mmol/L (134.5-145); TOTAL PROTEIN 7.68 g/dL (6.3-8.2)
[2024-09-05] MEDS: DUONEB NEB STA (16:15)
[2024-09-05 16:16] LABS: ABG PH 7.52 (7.35-7.45)
[2024-09-05] MEDS: DECADRON IVP ONE (16:19)
--- NOTE | 2024-09-05 16:26 | DI ---
EXAM: CHEST RADIOGRAPH TECHNIQUE: Single frontal chest radiograph. HISTORY: Chest pain. COMPARISON: 06/24/2024. FINDINGS: Lungs/Pleura: Coarse interstitial markings. Scattered calcified granulomas. No sizable effusion or focal infiltrate. No edema. Heart: The heart size is normal. Bones: Unremarkable. Other: None. IMPRESSION: 1. No acute findings.
[2024-09-05 16:58] LABS: TROPONIN I < 0.012 ng/ml (0.0000-0.120)
[2024-09-05] MEDS: ALBUTEROL 0.083% NEB NEB STA (17:29)
--- NOTE | 2024-09-05 18:50 | ED.PDOC ---
General ED Provider: Dr. HUMAIRA BRYAN DO Chief Complaint: Shortness of Air Stated Complaint: 59-year-old male presents to the ER with shortness of breath. He reports persistent wheeze particular when he lays down. He had a recent diagnosis in June of pneumonia. Since that time he said persistent shortness of breath. It is worsened over the last day or 2. Denies tobacco use or history of COPD. Denies chronic medical problems otherwise. Denies fever over the last 48 hours. 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 Time Seen by Provider: 09/05/24 15:25 Information Source: Patient Primary Care Provider: GLENDA PHILIP Nursing and Triage Documentation Reviewed and Agree: Yes What is Opioid Naive?: *Opioid Naive implies the patient is not already taking opioids or not chronically receiving opioids on a daily basis. *PRN dosing is not "usually" associated with tolerance. *Patients are at higher risk of over-sedation and aspiration. What is Opioid Tolerant?: *Opioid Tolerance implies less than the expected response to an opioid. *Acquired tolerance is defined by the patient taking 60mg of oral morphine daily (or equianalgesic dose of another opioid) for 1 week or more. *Often associated with chronic pain. *May take more than usual dose to achieve desired pain control. Review of Systems Review Of Systems Constitutional: Reports No symptoms All Other Systems: Reviewed and Negative [facility] Medical History Cellulitis of right anterior lower leg L03.115 - Cellulitis of right lower limb (ICD-10) Nasal polyps J33.9 - Nasal polyp, unspecified (ICD-10) Family History FATHER Heart attack Mother CHF (congestive heart failure) MATERNAL GRANDFATHER History of open heart surgery Diabetes Physical Exam Physical Exam Appearance: Reports Well-appearing, No pain distress and Well-nourished ENT: Reports Oropharynx normal Respiratory: Reports Airway patent, Respirations nonlabored and Wheezes (Bilateral, right greater than left); Denies Crackles or Rhonchi Cardiovascular: Reports RRR and Pulses normal GI/: Reports Soft and Nontender Musculoskeletal: Reports Normal strength and ROM intact Skin: Reports Warm, Dry and Normal color Neurological: Reports Sensation intact, Motor intact, Alert and Oriented Psychiatric: Reports Affect appropriate and Mood appropriate Interpretation EKG Interpretation EKG Interpretation By: ED Physician Time of EKG #1: 16:11 Rate: Normal Rhythm: Sinus Ectopy: None [place]: NL ST Segment: Normal Interpretation: Nonischemic EKG Re-Evaluation Re-Evaluation Additional Comments: 59-year-old male presents to the ER with shortness of breath. Wheezing evident on examination. Mildly hypoxic. ABG obtained and reviewed. Afebrile nontoxic doubt systemic infection such as sepsis. Pneumonia unlikely although he does have a recent diagnosis so this remains on the differential. Will obtain laboratory workup and compare with physical examination. Doubt other acute cardiopulmonary processes to include not limited to ACS, [place], PE, pneumothorax, dissection or tamponade. On further review of the patient's workup, is noted that he is hypertensive, tachycardic and hypoxic on presentation. Although he did not report any chest pain, given his recent illness, I became curious for PE. D-dimer was ordered which was subsequently elevated significantly. Subsequent CT scan positive for pulmonary emboli primarily on the right. He has no right heart strain. Negative troponin. Feel he is appropriate for admission here. Discussed with hospital service and gracious further help. Patient does state that he had a cramp in his right calf the other day, but he has a negative Homans bilaterally on repeat examinations. Course Course 09/05/24 15:49 09/05/24 15:49 Orders, Labs, Meds: Lab Review 09/05/24 09/05/24 09/05/24 15:30 15:42 15:49 WBC 8.82 RBC 4.81 Hgb 14.5 Hct 43.9 MCV 91.3 MCH 30.1 MCHC 33.0 RDW Coeff of Susan 12.3 Plt Count 267 Immature Gran % (Auto) 0.1 Neut % (Auto) 43.4 Lymph % (Auto) 24.8 [place] % (Auto) 8.5 Eos % (Auto) 22.4 H Baso % (Auto) 0.8 Neut # (Auto) 3.8 Lymph # (Auto) 2.2 [place] # (Auto) 0.8 Eos # (Auto) 2.0 H Baso # (Auto) 0.1 Immature Gran # (Auto) 0.0 Puncture Site Rrad Base Excess -3.3 L O2 Saturation 98.6 H ABG pH 7.52 H* ABG pCO2 24.0 L ABG pO2 105.0 H ABG HCO3 19.6 L ABG Total CO2 20.3 [place] Test Pos Hemoglobin 1.3 Oxyhemoglobin 95.7 Carboxyhemoglobin 2.5 H Total Hemoglobin 15.3 O2 Delivery Device Cannula Oxygen Liter Flow 3.00 Sodium 134.7 Potassium 4.05 Chloride 104.0 Carbon Dioxide 19.9 L Anion Gap 14.85 BUN 15.5 Creatinine 0.77 Estimated GFR (MDRD) 103.00 BUN/Creatinine Ratio 20.12 Glucose 95.3 Calcium 9.33 Total Bilirubin 0.53 AST 27.5 ALT 23.2 Alkaline Phosphatase 74.5 Troponin I < 0.012 NT-Pro-B Natriuret Pep < 20 Total Protein 7.68 Albumin 4.36 Globulin 3.32 Albumin/Globulin Ratio 1.31 D-Dimer 637.71 H Influ A Molecular Assay Negative by naat Influ B Molecular Assay Negative by naat SARS CoV-2 RNA Rapid MARIELLE Negative Orders Category Date Time Status ADMIT OBSERVATION [PLACE PATIENT OBSERVATION] .TO ADMISSION 09/05/24 21:52 Active MEDSURG (MONITORED BED) ABG DRAW REQUEST Stat CARDIO 09/05/24 15:33 Completed EKG-(ED ONLY) Stat CARDIO 09/05/24 15:26 Completed NEBULIZER TREATMENT Routine CARDIO 09/05/24 21:53 Ordered NEBULIZER TREATMENT Stat CARDIO 09/05/24 15:27 Completed NEBULIZER TREATMENT Stat CARDIO 09/05/24 17:22 Completed OXYGEN Routine CARDIO 09/05/24 21:52 Ordered NPO REMINDER: IMAGING ONCE CARE 09/05/24 20:50 Active TELEMETRY MONITORING TELE CARE 09/05/24 21:52 Active REGULAR DIET DIETARY 09/06/24 Breakfast Ordered ABG COOX Stat LAB 09/05/24 15:42 Completed CBC W/ AUTO DIFF Stat LAB 09/05/24 15:49 Completed CMP [COMPREHENSIVE METABOLIC PANEL] Stat LAB 09/05/24 15:49 Completed COVID [SARS COV-2 RNA RAPID MARIELLE] Stat LAB 09/05/24 15:30 Completed D-DIMER Stat LAB 09/05/24 15:49 Completed ED PROBNP [NT-PROBNP(ED)] Stat LAB 09/05/24 15:49 Completed FLU A & B MOLECULAR [FLU A/B MOLECULAR] Stat LAB 09/05/24 15:30 Completed TROPONIN I Stat LAB 09/05/24 15:49 Completed Acetaminophen [Tylenol] Meds 09/05/24 21:52 Active 650 mg PO ONCE PRN Albuterol Sulfate 0.083% Neb [Albuterol 0.083% Neb] Meds 09/05/24 17:21 Discontinued 15 mg NEB ONCE STA Apixaban [Eliquis] Meds 09/05/24 21:34 Discontinued 10 mg PO ONCE STA Dexamethasone Sod Phosphate [Decadron] Meds 09/05/24 15:27 Discontinued 10 mg IVP ONCE ONE Enoxaparin Sodium [Lovenox] Meds 09/05/24 21:48 Discontinued 150 mg SUBCUT ONCE STA Iohexol [Omnipaque 350 mg/ml 100Ml] Meds 09/05/24 20:57 Discontinued 100 ml IVP ONCE ONE Ipratropium/Albuterol Neb [Duoneb] Meds 09/05/24 15:27 Discontinued 3 ml NEB ONCE STA Ipratropium/Albuterol Neb [Duoneb] Meds 09/05/24 21:52 Active 3 ml NEB RTQ2H PRN Ondansetron [Zofran Odt] Meds 09/05/24 21:52 Active 4 mg PO ONCE PRN CHEST, 1V AP ONLY Stat RADS 09/05/24 15:26 Completed CTA CHEST PE PROTOCOL Stat RADS 09/05/24 20:50 Completed Medications Generic Name Dose Route Start Last Admin Trade Name Freq PRN Reason Stop Dose Admin Acetaminophen 650 mg 09/05/24 21:52 Acetaminophen 325 Mg Tablet PO ONCE PRN fever/pain Albuterol/Ipratropium 3 ml 09/05/24 21:52 Ipratropium/Albuterol Vial.Neb NEB RTQ2H PRN Wheezing Ondansetron HCl 4 mg 09/05/24 21:52 Ondansetron Hcl 4 Mg Tab.Rapdis PO ONCE PRN Nausea / Vomiting Discontinued Medications Generic Name Dose Route Start Last Admin Trade Name Freq PRN Reason Stop Dose Admin Albuterol Sulfate 15 mg 09/05/24 17:21 09/05/24 17:29 Albuterol Sulfate 0.083% Vial.Neb NEB 09/05/24 17:22 15 mg ONCE STA Administration Albuterol/Ipratropium 3 ml 09/05/24 15:27 09/05/24 16:15 Ipratropium/Albuterol Vial.Neb NEB 09/05/24 15:28 3 ml ONCE STA Administration Apixaban 10 mg 09/05/24 21:34 Apixaban 5 Mg Tab PO 09/05/24 21:35 ONCE STA Dexamethasone Sodium Phosphate 10 mg 09/05/24 15:27 09/05/24 16:19 Dexamethasone Sod Phos 10 Mg/Ml Inj IVP 09/05/24 15:28 10 mg ONCE ONE Administration Enoxaparin Sodium 150 mg 09/05/24 21:48 Enoxaparin Sodium 150 Mg/Ml Syr SUBCUT 09/05/24 21:49 ONCE STA Iohexol 100 ml 09/05/24 20:57 09/05/24 21:03 Iohexol 350 Mg/Ml 100ml IVP 09/05/24 20:58 100 ml ONCE ONE Administration Vital Signs: Temp Pulse Resp BP Pulse Ox 09/05/24 15:00 97.7 F 98 20 150/105 H 93 L Discharge Plan Discharge Patient Disposition: PLACED OBSERVATION Discharge Problem: Acute hypoxemic respiratory failure, Pulmonary emboli Prescriptions: No Action No Reported Medications Did you review [place] PATTERN CLEANER for ALL controlled substances?: Not Applicable ED Provider: HUMAIRA BRYAN Condition: Stable
[2024-09-05] MEDS: OMNIPAQUE 350 MG/ML 100ML IVP ONE (21:03)
--- NOTE | 2024-09-05 21:38 | CT ---
EXAM: CTA CHEST WITH CONTRAST HISTORY: Shortness of breath, hypoxia and elevated D-dimer COMPARISON: CTA chest from 06/27/2024 TECHNIQUE: Multi-slice transaxial helical images are acquired through the chest according to an [facility] protocol. 3-D volume images are provided. All CT scans are performed using dose optimization techniques as appropriate to the performed exam and includes at least one of the following: Automate d exposure control, adjustment of the mA and/or kV according to size, and the use of iterative recons truction technique. CONTRAST: 100 mL Omnipaque-350 IV FINDINGS: There are intraluminal filling defects within the distal right main pulmonary artery with extension into a lobar branch of the right lower lobe. There are additional emboli within segmental branches of the right lower lobe. There is an intraluminal filling defect within the lobar segment o f the right middle lobe. No other intraluminal filling defects are detected. The heart size is norm al. The RV to LV ratio is less than 1.0. No right ventricular strain. No pericardial or pleural ef fusions. Calcified mediastinal and bilateral hilar lymph nodes are noted. No suspicious lymphadenop athy. The ascending aorta is minimally ectatic to 31.5 mm. Calcified granulomas are noted in the yoni ngs. The dependent lungs are minimally atelectatic. Mild bronchiectasis is noted. Minimal ground-g lass densities noted in the left upper lobe and right upper lobe. Biapical pleural parenchymal scarr ing is noted. There is a stable solid nodule in the right upper lobe measuring 0.3 cm on series 9 im age number 23. There is a stable solid subpleural nodule in the left upper lobe measuring 0.3 cm jamey ge number 34. There is a right adrenal nodule measuring 1.3 cm with low attenuation. There is a simple cyst at the inferior pole of the left kidney. The solid organs are otherwise normal in their visualized portion s of the upper abdomen. No suspicious bone lesions or acute osseous abnormalities. Old healed right rib fractures are noted. IMPRESSION: - Pulmonary emboli within the right arterial tree as detailed. No right ventricular strain. Genoveva blanchard results discussed with Dr. Borrero in the ER on 09/05/2024 at 2133 hours. - Atelectasis in the right lung base. - Bilateral upper lobe pneumonitis. - Two stable solid pulmonary nodules measuring 0.3 cm. An optional follow-up chest CT may be obtaine d in 12 months if there are risk factors for lung cancer such as smoking according to the Fleischner Society guidelines. - Probable right adrenal adenoma. All CT scans are performed using dose optimization techniques as appropriate to the performed exam an d include at least one of the following: Automated exposure control, adjustment of the mA and/or kV according t o size, and the use of iterative reconstruction technique.
[2024-09-05] MEDS ORDERED: TYLENOL PO PRN (21:52)
[2024-09-05] MEDS ORDERED: ZOFRAN ODT PO PRN (21:52)
[2024-09-05] MEDS: ELIQUIS PO STA (22:26)
[2024-09-05] MEDS: LOVENOX SUBCUT STA (22:26)
[2024-09-06 00:28] VITALS: BMI 25.0
[2024-09-06] MEDS ORDERED: ZOFRAN SDV IVP PRN (08:29)
[2024-09-06] MEDS ORDERED: TYLENOL PO PRN (08:29)
[2024-09-06 08:54] LABS: BASOPHILS % (AUTO) 0.2 % (0.0-3.0); EOSINOPHILS % (AUTO) 0.4 % (0.0-7.0); HEMATOCRIT 40.7 % (42.0-52.0); HEMOGLOBIN 13.4 g/dl (14.0-18.0); IMMATURE GRANULOCYTE % (AUTO) 0.4 % (0.0-5.0); LYMPHOCYTES # (AUTO) 1.1 K/uL (0.60-3.4); MEAN CORPUSCULAR HEMOGLOBIN 30.4 pg (27.0-31.0); MEAN CORPUSCULAR HGB CONC 32.9 (31.8-35.4); MEAN CORPUSCULAR VOLUME 92.3 fl (80.0-94.0); MONOCYTES # (AUTO) 0.3 K/uL (0.4-2.0); MONOCYTES % (AUTO) 6.2 (0-10); NEUTROPHILS % (AUTO) 72.8 % (42.2-75.2); PLATELET COUNT 257 10^3/uL (140-440); RDW COEFFICIENT OF VARIATION 12.7 % (11.6-14.8); RED BLOOD COUNT 4.41 10^6/ul (4.70-6.10); WHITE BLOOD COUNT 5.49 K/ul (4.2-10.2)
[2024-09-06 09:04] LABS: ALBUMIN 4.17 g/dL (3.5-5.0); ALKALINE PHOSPHATASE 68.2 U/L (56-119); ASPARTATE AMINO TRANSFERASE 23.3 U/L (17-59); BILIRUBIN,TOTAL 0.55 mg/dL (0.2-1.3); BLOOD UREA NITROGEN 15.5 mg/dL (9-20); CALCIUM 9.13 mg/dL (8.4-10.2); CARBON DIOXIDE 18.4 mmol/L (22-30.0); CREATININE 0.82 mg/dL (0.60-1.10); GLUCOSE 184.9 mg/dL (74-106); POTASSIUM 3.86 mmol/L (3.5-5.1); SODIUM 134.5 mmol/L (134.5-145); TOTAL PROTEIN 7.27 g/dL (6.3-8.2)
[2024-09-06 09:10] LABS: ALANINE AMINOTRANSFERASE 33.1 U/L (0-50)
[2024-09-06] MEDS: LOVENOX SUBCUT SCH (09:58)
--- NOTE | 2024-09-06 10:12 | PCM ---
Date of Service Date Seen by Provider: 09/06/24 Time Seen by Provider: 08:50 Admit Day/Time Admission Date: 09/05/24 Admission Time: 21:52 Reason for Admission Chief Complaint: HYPOXEMIC RESP FAILURE, PULM EMBOLI Hospital Provider Hospital Provider: ANA ROSA WADDELL PA-C, [facility] [place] Primary Care Physician Primary Care Physician: GLENDA PHILIP History of Present Illness History of Present Illness: Patient is a 59 year old male from home who presents with worsening SOB. Pt was hospitalized in June with pneumonia and acute respiratory failure. He was discharged without oxygen. He had a CTA at that time that was negative for PE. However he states he has continued to feel SOB. He often has to take a break and sit down just with showering. He was noted to be mildly tachycardic and hypoxic in the ER. CXR negative. CTA showing pulmonary emboli within right arterial tree. No strain noted on CTA. Pt's tachycardia improved. BP was normal. He required 2L. He was given lovenox and eliquis and was admitted to med surg. Patient overall feeling better today but still SOB with exertion. He required up to 3L after ambulating to the restroom. No hx of pe/dvt. 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 Case Discussed With Case Discussed With: Patient's case was discussed with the ER Physicians, Dr. Borrero. [facility] Medical History Allergies T78.40XA - Allergy, unspecified, initial encounter (ICD-10) Pneumonia J18.9 - Pneumonia, unspecified organism (ICD-10) Cellulitis of right anterior lower leg L03.115 - Cellulitis of right lower limb (ICD-10) Nasal polyps J33.9 - Nasal polyp, unspecified (ICD-10) Family History FATHER Heart attack Mother CHF (congestive heart failure) MATERNAL GRANDFATHER History of open heart surgery Diabetes Social History Smoking and tobacco status: Never smoker Alcohol intake: current Alcohol intake frequency: a few times a month Alcohol type: beer Substance use type: former substance user and marijuana Allergies Allergies Allergy/AdvReac Type Severity Reaction Status Date / Time Penicillins AdvReac Verified 06/24/24 09:36 Current Medications Home Medications chlorpheniramine maleate 4 mg tablet (Allergy (chlorpheniramine)) 4 mg PO Q12HR PRN allergy symptoms 09/06/24 [History Confirmed 09/06/24 Last Taken Unknown] Home Acetaminophen (Acetaminophen 325 Mg Tablet) 650 mg PO ONCE PRN PRN Reason: fever/pain Acetaminophen (Acetaminophen 325 Mg Tablet) 650 mg PO Q4H PRN PRN Reason: Mild Pain Albuterol/Ipratropium (Ipratropium/Albuterol Vial.Neb) 3 ml NEB RTQ2H PRN PRN Reason: Wheezing Last Admin: 09/06/24 11:10 Dose: 3 ml Enoxaparin Sodium (Enoxaparin Sodium 100 Mg/Ml Syr) 80 mg SUBCUT Q12HR [facility] Last Admin: 09/06/24 09:58 Dose: 80 mg Methylprednisolone Sodium Succinate (Methylprednisolone Sod Succ/Pf 40 Mg/Ml Vial) 40 mg IVP Q8HR [facility] Last Admin: 09/06/24 10:59 Dose: 40 mg Ondansetron HCl (Ondansetron Hcl 4 Mg Tab.Rapdis) 4 mg PO ONCE PRN PRN Reason: Nausea / Vomiting Ondansetron HCl (Ondansetron Hcl/Pf 4 Mg/2 Ml Sdv) 4 mg IVP Q6H PRN PRN Reason: Nausea / Vomiting Discontinued Medications Albuterol Sulfate (Albuterol Sulfate 0.083% Vial.Neb) 15 mg NEB ONCE STA Stop: 09/05/24 17:22 Last Admin: 09/05/24 17:29 Dose: 15 mg Albuterol/Ipratropium (Ipratropium/Albuterol Vial.Neb) 3 ml NEB ONCE STA Stop: 09/05/24 15:28 Last Admin: 09/05/24 16:15 Dose: 3 ml Apixaban (Apixaban 5 Mg Tab) 10 mg PO ONCE STA Stop: 09/05/24 21:35 Last Admin: 09/05/24 22:26 Dose: 10 mg Dexamethasone Sodium Phosphate (Dexamethasone Sod Phos 10 Mg/Ml Inj) 10 mg IVP ONCE ONE Stop: 09/05/24 15:28 Last Admin: 09/05/24 16:19 Dose: 10 mg Enoxaparin Sodium (Enoxaparin Sodium 150 Mg/Ml Syr) 150 mg SUBCUT ONCE STA Stop: 09/05/24 21:49 Last Admin: 09/05/24 22:26 Dose: 150 mg Iohexol (Iohexol 350 Mg/Ml 100ml) 100 ml IVP ONCE ONE Stop: 09/05/24 20:58 Last Admin: 09/05/24 21:03 Dose: 100 ml Opioid Naive vs. Tolerant Does Patient Take Opioids?: No Is Patient Opioid Naive?: Yes What is Opioid Naive?: *Opioid Naive implies the patient is not already taking opioids or not chronically receiving opioids on a daily basis. *PRN dosing is not "usually" associated with tolerance. *Patients are at higher risk of over-sedation and aspiration. Is Patient Opioid Tolerant?: No What is Opioid Tolerant?: *Opioid Tolerance implies less than the expected response to an opioid. *Acquired tolerance is defined by the patient taking 60mg of oral morphine daily (or equianalgesic dose of another opioid) for 1 week or more. *Often associated with chronic pain. *May take more than usual dose to achieve desired pain control. Review of Systems Constitutional: Denies Fever, Fatigue or Weakness Head: Reports Normocephalic and Atraumatic Cardiovascular: Denies Chest pain, Chest Pressure or Edema Respiratory: Reports Shortness of air and Wheeze; Denies Cough Gastrointestinal: Denies Nausea, Vomiting, Diarrhea, Abdominal pain or Melena Genitourinary: Denies Dysuria or Hematuria Dermatologic: Denies Rashes Neurological: Denies Headache, Dizziness, Syncope or Weakness Physical examination Most Recent Vital Signs: Most Recent Vital Signs Temperature 97.0 F L 09/06/24 05:15 Temperature Source Temporal Artery Scan 09/06/24 05:15 Temperature Source Oral 09/05/24 15:00 Pulse Rate 75 09/06/24 05:15 Respiratory Rate 18 09/06/24 05:15 Blood Pressure 130/79 09/06/24 05:15 Blood Pressure Mean 96 09/06/24 05:15 Blood Pressure Left Arm 148/96 09/05/24 23:03 Blood Pressure Location Left Arm 09/06/24 05:15 Blood Pressure Position Supine 09/06/24 05:15 O2 Sat by Pulse Oximetry 94 L 09/06/24 09:12 Oxygen Delivery Method Nasal Cannula 09/06/24 09:55 Oxygen Flow Rate 3 09/06/24 09:12 Height 5 ft 10 in 09/05/24 23:03 Weight 79.2 kg 09/05/24 23:03 Telemetry Type Bedside Monitor 09/06/24 01:00 Telemetry Monitoring Continues 09/06/24 01:00 Telemetry Heart Rate 119 H 09/06/24 01:00 Telemetry SPO2 95 09/06/24 01:00 EKG [place] Interval 0.18 09/06/24 01:00 EKG QRS Interval 0.08 09/06/24 01:[address] 09/06/24 01:00 Appearance: Positive No Apparent Distress and Alert and Oriented x3 Skin: Positive [place], Warm and Good Turgor; Negative Rashes HEENT: Positive Normocephalic and Atraumatic Neck: Positive Supple and Midline Trachea Chest/Lungs: Positive Symmetrical With Equal Breath Sounds and Wheezes; Negative Rales or Rhonci Heart: Positive RRR GI/: Positive Soft, Nontender, Bowel Sounds Normal and No Distention Extremities: Negative Edema Neurological: Positive Cranial Nerves Intact, Alert and Oriented Psychiatric: Positive Oriented x4, Appropriate Mood and Appropriate Affect Labs This Visit Labs This Visit: Labs This Visit 09/05/24 09/05/24 09/05/24 15:30 15:42 15:49 WBC 8.82 RBC 4.81 Hgb 14.5 Hct 43.9 MCV 91.3 MCH 30.1 MCHC 33.0 RDW Coeff of Susan 12.3 Plt Count 267 Immature Gran % (Auto) 0.1 Neut % (Auto) 43.4 Lymph % (Auto) 24.8 La[place] % (Auto) 8.5 Eos % (Auto) 22.4 H Baso % (Auto) 0.8 Neut # (Auto) 3.8 Lymph # (Auto) 2.2 [place] # (Auto) 0.8 Eos # (Auto) 2.0 H Baso # (Auto) 0.1 Immature Gran # (Auto) 0.0 Puncture Site Rrad Base Excess -3.3 L O2 Saturation 98.6 H ABG pH 7.52 H* ABG pCO2 24.0 L ABG pO2 105.0 H ABG HCO3 19.6 L ABG Total CO2 20.3 [place] Test Pos Hemoglobin 1.3 Oxyhemoglobin 95.7 Carboxyhemoglobin 2.5 H Total Hemoglobin 15.3 O2 Delivery Device Cannula Oxygen Liter Flow 3.00 Sodium 134.7 Potassium 4.05 Chloride 104.0 Carbon Dioxide 19.9 L Anion Gap 14.85 BUN 15.5 Creatinine 0.77 Estimated GFR (MDRD) 103.00 BUN/Creatinine Ratio 20.12 Glucose 95.3 Calcium 9.33 Total Bilirubin 0.53 AST 27.5 ALT 23.2 Alkaline Phosphatase 74.5 Troponin I < 0.012 NT-Pro-B Natriuret Pep < 20 Total Protein 7.68 Albumin 4.36 Globulin 3.32 Albumin/Globulin Ratio 1.31 D-Dimer 637.71 H Influ A Molecular Assay Negative by naat Influ B Molecular Assay Negative by naat SARS CoV-2 RNA Rapid MARIELLE Negative 09/06/24 08:46 WBC 5.49 RBC 4.41 L Hgb 13.4 L Hct 40.7 L MCV 92.3 MCH 30.4 MCHC 32.9 RDW Coeff of Susan 12.7 Plt Count 257 Immature Gran % (Auto) 0.4 Neut % (Auto) 72.8 Lymph % (Auto) 20.0 [place] % (Auto) 6.2 Eos % (Auto) 0.4 Baso % (Auto) 0.2 Neut # (Auto) 4.0 Lymph # (Auto) 1.1 [place] # (Auto) 0.3 L Eos # (Auto) 0.0 Baso # (Auto) 0.0 Immature Gran # (Auto) 0.0 Puncture Site Base Excess O2 Saturation ABG pH ABG pCO2 ABG pO2 ABG HCO3 ABG Total CO2 [place] Test Hemoglobin Oxyhemoglobin Carboxyhemoglobin Total Hemoglobin O2 Delivery Device Oxygen Liter Flow Sodium 134.5 Potassium 3.86 Chloride 103.0 Carbon Dioxide 18.4 L Anion Gap 16.96 BUN 15.5 Creatinine 0.82 Estimated GFR (MDRD) 96.00 BUN/Creatinine Ratio 18.90 Glucose 184.9 H D Calcium 9.13 Total Bilirubin 0.55 AST 23.3 ALT 33.1 Alkaline Phosphatase 68.2 Troponin I NT-Pro-B Natriuret Pep Total Protein 7.27 Albumin 4.17 Globulin 3.10 Albumin/Globulin Ratio 1.34 D-Dimer Influ A Molecular Assay Influ B Molecular Assay SARS CoV-2 RNA Rapid MARIELLE Imaging Imaging: EXAM: CTA CHEST WITH CONTRAST HISTORY: Shortness of breath, hypoxia and elevated D-dimer COMPARISON: CTA chest from 06/27/2024 TECHNIQUE: Multi-slice transaxial helical images are acquired through the chest according to an angiogram protocol. 3-D volume images are provided. All CT scans are performed using dose optimization techniques as appropriate to the performed exam and includes at least one of the following: Automated exposure control, adjustment of the mA and/or kV according to size, and the use of iterative reconstruction technique. CONTRAST: 100 mL Omnipaque-350 IV FINDINGS: There are intraluminal filling defects within the distal right main pulmonary artery with extension into a lobar branch of the right lower lobe. There are additional emboli within segmental branches of the right lower lobe. There is an intraluminal filling defect within the lobar segment of the right middle lobe. No other intraluminal filling defects are detected. The heart size is normal. The RV to LV ratio is less than 1.0. No right ventricular strain. No pericardial or pleural effusions. Calcified mediastinal and bilateral hilar lymph nodes are noted. No suspicious lymphadenopathy. The ascending aorta is minimally ectatic to 31.5 mm. Calcified granulomas are noted in the lungs. The dependent lungs are minimally atelectatic. Mild bronchiectasis is noted. Minimal ground-glass densities noted in the left upper lobe and right upper lobe. Biapical pleural parenchymal scarring is noted. There is a stable solid nodule in the right upper lobe measuring 0.3 cm on series 9 image number 23. There is a stable solid subpleural nodule in the left upper lobe measuring 0.3 cm image number 34. There is a right adrenal nodule measuring 1.3 cm with low attenuation. There is a simple cyst at the inferior pole of the left kidney. The solid organs are otherwise normal in their visualized portions of the upper abdomen. No suspicious bone lesions or acute osseous abnormalities. Old healed right rib fractures are noted. IMPRESSION: - Pulmonary emboli within the right arterial tree as detailed. No right ventricular strain. Critical results discussed with Dr. Borrero in the ER on 09/05 at 2133 hours. - Atelectasis in the right lung base. - Bilateral upper lobe pneumonitis. - Two stable solid pulmonary nodules measuring 0.3 cm. An optional follow-up chest CT may be obtained in 12 months if there are risk factors for lung cancer such as smoking according to the Fleischner Society guidelines. - Probable right adrenal adenoma. EXAM: CHEST RADIOGRAPH TECHNIQUE: Single frontal chest radiograph. HISTORY: Chest pain. COMPARISON: 06/24/2024. FINDINGS: Lungs/Pleura: Coarse interstitial markings. Scattered calcified granulomas. No sizable effusion or focal infiltrate. No edema. Heart: The heart size is normal. Bones: Unremarkable. Other: None. IMPRESSION: 1. No acute findings. Review Statement Review Statement: I have independently reviewed and interpreted the labs/EKGs/imaging that were ordered by the ER provider. I have reviewed all outside records that are available currently in our EMR including imaging/notes/labs from previous visits. Plan Plan: 1. Acute pulmonary emboli within right arterial tree - Cont lovenox 80 mg q12hrs, will need transitioned to a doac if insurance will cover, can check tomorrow. Wean O2 if able. Check echo. Trop and bnp negative. 2. Acute hypoxic respiratory failure in setting of right acute PE - Worsening, required 3L today. Plan as above. Adding steroids due to wheezing. DVT Prophylaxis: Lovenox Time Spent: Greater than 80 minutes spent with patient, 50% of the time spent with this patient was devoted to counseling and coordination of care. [facility] minutes spent discussing advance care planning. Admit to: Flipped inpatient today. Discussed Plan of Care with Dr. Melissa Arreola. Medications Medication Orders: Medications Ordered Category Date Time Status Acetaminophen [Tylenol] Meds 09/05/24 21:52 Active 650 mg PO ONCE PRN Acetaminophen [Tylenol] Meds 09/06/24 08:29 Active 650 mg PO Q4H PRN Enoxaparin Sodium [Lovenox] Meds 09/06/24 10:00 Active 80 mg SUBCUT Q12HR Ipratropium/Albuterol Neb [Duoneb] Meds 09/05/24 21:52 Active 3 ml NEB RTQ2H PRN Methylprednisolone Sod Succ/Pf [Solu-Medrol 40 mg] Meds 09/06/24 10:10 Ordered 40 mg IVP Q8HR Ondansetron HCl/Pf [Zofran Sdv] Meds 09/06/24 08:29 Active 4 mg IVP Q6H PRN Ondansetron [Zofran Odt] Meds 09/05/24 21:52 Active 4 mg PO ONCE PRN
[2024-09-06] MEDS: SOLU-MEDROL 40 MG IVP SCH (10:59)
[2024-09-06] MEDS: DUONEB NEB PRN (11:10)
[2024-09-07 05:23] LABS: BASOPHILS % (AUTO) 0.1 % (0.0-3.0); HEMATOCRIT 39.8 % (42.0-52.0); HEMOGLOBIN 12.8 g/dl (14.0-18.0); IMMATURE GRANULOCYTE % (AUTO) 0.3 % (0.0-5.0); LYMPHOCYTES % (AUTO) 11.3 (10.0-50.0); MEAN CORPUSCULAR HEMOGLOBIN 30.3 pg (27.0-31.0); MEAN CORPUSCULAR HGB CONC 32.2 (31.8-35.4); MEAN CORPUSCULAR VOLUME 94.1 fl (80.0-94.0); MONOCYTES # (AUTO) 0.5 K/uL (0.4-2.0); MONOCYTES % (AUTO) 5.2 (0-10); NEUTROPHILS # (AUTO) 7.4 K/ul (2.0-6.9); NEUTROPHILS % (AUTO) 83.1 % (42.2-75.2); PLATELET COUNT 266 10^3/uL (140-440); RDW COEFFICIENT OF VARIATION 12.6 % (11.6-14.8); RED BLOOD COUNT 4.23 10^6/ul (4.70-6.10); WHITE BLOOD COUNT 8.93 K/ul (4.2-10.2)
[2024-09-07 05:38] LABS: ALANINE AMINOTRANSFERASE 21.4 U/L (0-50); ALBUMIN 3.93 g/dL (3.5-5.0); ALKALINE PHOSPHATASE 60.5 U/L (56-119); ASPARTATE AMINO TRANSFERASE 24.1 U/L (17-59); BILIRUBIN,TOTAL 0.49 mg/dL (0.2-1.3); BLOOD UREA NITROGEN 15.1 mg/dL (9-20); CALCIUM 8.84 mg/dL (8.4-10.2); CARBON DIOXIDE 22.2 mmol/L (22-30.0); CHLORIDE 106.1 mmol/L (98-107); CREATININE 0.79 mg/dL (0.60-1.10); GLUCOSE 129.5 mg/dL (74-106); POTASSIUM 4.64 mmol/L (3.5-5.1); SODIUM 134.3 mmol/L (134.5-145); TOTAL PROTEIN 7.09 g/dL (6.3-8.2)
[2024-09-07 10:20] VITALS: RESP 26; TEMP 98.4
--- NOTE | 2024-09-07 11:57 | DCSUM ---
Admission Date Admission Date: 09/05/24 Discharge Date Discharge Date: 09/07/24 Admission Diagnosis Admission Diagnosis: 1. Acute pulmonary emboli within right arterial tree 2. Acute hypoxic respiratory failure in setting of right acute PE Discharge Diagnosis Discharge Diagnosis: 1. Acute pulmonary emboli within right arterial tree - Stable 2. Acute hypoxic respiratory failure in setting of right acute PE - Continued Hospital Provider Hospital Provider: LANA QUINTANA, [facility] Primary Care Physician Primary Care Physician: GLENDA PHILIP Summary of History and Physical Summary of History and Physical: Patient is a 59 year old male from home who presents with worsening SOB. Pt was hospitalized in June with pneumonia and acute respiratory failure. He was discharged without oxygen. He had a CTA at that time that was negative for PE. However he states he has continued to feel SOB. He often has to take a break and sit down just with showering. He was noted to be mildly tachycardic and hypoxic in the ER. CXR negative. CTA showing pulmonary emboli within right arterial tree. No strain noted on CTA. Pt's tachycardia improved. BP was normal. He required 2L. He was given lovenox and eliquis and was admitted to med surg. Patient overall feeling better today but still SOB with exertion. He required up to 3L after ambulating to the restroom. No hx of pe/dvt. 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 Hospital Course Subjective: During stay, patient has continued to require 2-3L of oxygen. SOB present on exertion with O2 sat dropping down to 87% at times. Patient states he is feeling much better compared to admission. HR improved and under 100. Has been receiving lovenox for treatment of PE. D/c with eliquis prescription. Due to wheezing likely from pneumonitis noted on CTA, patient was given nebs and steroids. D/c with inhaler and medrol dose pack. 3 step completed for oxygen qualification for continuous need at this time. Echo completed as well and showed LVH. EF within normal limits. Appearance: Pleasant, No Apparent Distress and Alert HEENT: MMM, Supple and No JVD CVS: No Murmur and No Rubs Abdomen: Soft, Non-Tender and No Distention Respiratory: No Dyspnea Extremities: No Edema Vital Signs: Most Recent Vital Signs Temperature 98.4 F 09/07/24 10:00 Temperature Source Temporal Artery Scan 09/07/24 10:00 Temperature Source Oral 09/05/24 15:00 Pulse Rate 95 09/07/24 10:00 Respiratory Rate 26 H 09/07/24 10:00 Blood Pressure 146/96 H 09/07/24 10:00 Blood Pressure Mean 112 09/07/24 10:00 Blood Pressure Left Arm 148/96 09/05/24 23:03 Blood Pressure Location Left Arm 09/07/24 10:00 Blood Pressure Position Sitting 09/07/24 10:00 O2 Sat by Pulse Oximetry 90 L 09/07/24 10:00 Oxygen Delivery Method Nasal Cannula 09/07/24 10:00 Oxygen Flow Rate 3 09/07/24 10:00 Height 5 ft 10 in 09/05/24 23:03 Weight 79.2 kg 09/05/24 23:03 Telemetry Type Bedside Monitor 09/07/24 07:00 Telemetry Monitoring Continues 09/07/24 07:00 Telemetry Heart Rate 64 09/07/24 07:00 Telemetry SPO2 93 09/07/24 07:00 EKG [place] Interval 0.22 H 09/07/24 07:00 EKG QRS Interval 0.07 09/07/24 07:00 Telemetry Strip Reading NSR 09/07/24 07:00 Imaging: EXAM: CTA CHEST WITH CONTRAST HISTORY: Shortness of breath, hypoxia and elevated D-dimer COMPARISON: CTA chest from 06/27/2024 TECHNIQUE: Multi-slice transaxial helical images are acquired through the chest according to an angiogram protocol. 3-D volume images are provided. All CT scans are performed using dose optimization techniques as appropriate to the performed exam and includes at least one of the following: Automated exposure control, adjustment of the mA and/or kV according to size, and the use of iterative reconstruction technique. CONTRAST: 100 mL Omnipaque-350 IV FINDINGS: There are intraluminal filling defects within the distal right main pulmonary artery with extension into a lobar branch of the right lower lobe. There are additional emboli within segmental branches of the right lower lobe. There is an intraluminal filling defect within the lobar segment of the right middle lobe. No other intraluminal filling defects are detected. The heart size is normal. The RV to LV ratio is less than 1.0. No right ventricular strain. No pericardial or pleural effusions. Calcified mediastinal and bilateral hilar lymph nodes are noted. No suspicious lymphadenopathy. The ascending aorta is minimally ectatic to 31.5 mm. Calcified granulomas are noted in the lungs. The dependent lungs are minimally atelectatic. Mild bronchiectasis is noted. Minimal ground-glass densities noted in the left upper lobe and right upper lobe. Biapical pleural parenchymal scarring is noted. There is a stable solid nodule in the right upper lobe measuring 0.3 cm on series 9 image number 23. There is a stable solid subpleural nodule in the left upper lobe measuring 0.3 cm image number 34. There is a right adrenal nodule measuring 1.3 cm with low attenuation. There is a simple cyst at the inferior pole of the left kidney. The solid organs are otherwise normal in their visualized portions of the upper abdomen. No suspicious bone lesions or acute osseous abnormalities. Old healed right rib fractures are noted. IMPRESSION: - Pulmonary emboli within the right arterial tree as detailed. No right ventricular strain. Critical results discussed with Dr. Borrero in the ER on 09/05/2024 at 2133 hours. - Atelectasis in the right lung base. - Bilateral upper lobe pneumonitis. - Two stable solid pulmonary nodules measuring 0.3 cm. An optional follow-up chest CT may be obtained in 12 months if there are risk factors for lung cancer such as smoking according to the Fleischner Society guidelines. - Probable right adrenal adenoma. Date of Exam: 4Room #: SCU 2 Ordering Physician: Nadia WADDELL APRN (HOSPITALIST); DR. PHILIP (PT'S PRIMARY CARE) Reason for Echo: PULMONARY EMBOLISM, ASTHMA, HYPOXEMIA M-Mode Normal Adult Results LV Dimensions Normal Adult Results AoV Opening excursions >1.6 >1.6 LVEDD-base- 3.5-5.8 4.6 Ao root dimensions 2.0-3.7 3.8 LVESD-base- 3.1-4.6 L. Atrium dimensions 1.9-3.8 3.4 Post. Wall thickness 0.8-1.1 1.2 IV septum (thickness) 0.7-1.2 1.2 Post. Wall excursion 0.72-1.3 NORMAL Septal motion NORMAL Systolic motion R. Ventricular cavity 1.5-2.0 2.5 LVEF 60% 70% Paradoxical septal wall motion NORMAL 2-D : 2-D M Mode Echocardiogram was performed using apical four chamber and left parasternal long and short axis views. Mitral, tricuspid and aortic valves appear to be normal. Contractility of the left ventricle seems to be normal, so is the cavity size. Left atrial cavity size and aortic root appear to be normal. There is no pericardial effusion. There is no thrombus noted in the left ventricle or left atrial cavity. M-MODE: MV: NORMAL AV: NORMAL TV: NORMAL PV: NORMAL CHAMBER SIZE: BORDERLINE RIGHT VENTRICULAR CAVITY WALL MOTION: NORMAL PERICARDIUM: NORMAL INTERPRETATION: 1. BORDERLINE LEFT VENTRICULAR HYPERTROPHY. 2. RIGHT VENTRICULAR CAVITY ENLARGEMENT - BORDERLINE. 3. VALVES NORMAL. 4. LEFT VENTRICLE SIZE NORMAL AND NORMAL LEFT VENTRICULAR CONTRACTILITY. Dictated By EJD PALUMBO MDDictating Date/Time: 09/07/24 1250Transcriptionist: JOSE Signed By JED PALUMBO MDSigned Date/Time: 09/07/24 1320 Lab Results Last 24 Hours: 09/07/24 05:18 WBC 8.93 RBC 4.23 L Hgb 12.8 L Hct 39.8 L MCV 94.1 H MCH 30.3 MCHC 32.2 RDW Coeff of Susan 12.6 Plt Count 266 Immature Gran % (Auto) 0.3 Neut % (Auto) 83.1 H Lymph % (Auto) 11.3 [place] % (Auto) 5.2 Eos % (Auto) 0.0 Baso % (Auto) 0.1 Neut # (Auto) 7.4 H Lymph # (Auto) 1.0 [place] # (Auto) 0.5 Eos # (Auto) 0.0 Baso # (Auto) 0.0 Immature Gran # (Auto) 0.0 Sodium 134.3 L Potassium 4.64 Chloride 106.1 Carbon Dioxide 22.2 Anion Gap 10.64 BUN 15.1 Creatinine 0.79 Estimated GFR (MDRD) 100.00 BUN/Creatinine Ratio 19.11 Glucose 129.5 H D Calcium 8.84 Total Bilirubin 0.49 AST 24.1 ALT 21.4 Alkaline Phosphatase 60.5 Total Protein 7.09 Albumin 3.93 Globulin 3.16 Albumin/Globulin Ratio 1.24 Discharge Instructions Discharge Planning: Discharge Planning > 40 minutes If patient is discharged with left ventricular systolic dysfunction: no Discharged with a beta dahiana? [] If no, why not? [] Discharged with an jermaine/arb? [] If no, why not? [] Diagnosis: Pulmonary Embolism, Pneumonitis Diet: Regular Activity: as tolerated Medications: MD2 Discharge Plan Discharge Discharge Orders: Discharge Patient (ONCE); Ordered 09/07/24 Ordered By: JAYNA WHITE Activity Restrictions/Additional Instructions: Diagnosis: Pulmonary Embolism, Pneumonitis Diet: Regular Activity: as tolerated Medications: MD2 Instructions: Pulmonary Embolism (GEN), Pneumonitis (GEN) Patient Disposition: HOME SELF-CARE Prescriptions: New apixaban 5 mg tablet 5 mg PO BID Qty: 60 0RF Rx Instructions: 10 mg twice a day x 7 days then 5 mg twice a day methylprednisolone [Medrol (Anil)] 4 mg tablets,dose pack See Rx Instructions .ROUTE .COMPLEX Qty: 21 0RF Rx Instructions: orally per package directions albuterol sulfate 90 mcg/actuation HFA aerosol inhaler 2 puff inhalation Q4-6H PRN (Reason: shortness of breath or wheezing) Qty: 6.7 0RF No Action chlorpheniramine maleate [Allergy (chlorpheniramine)] 4 mg tablet 4 mg PO Q12HR PRN (Reason: allergy symptoms) Did you review [place] [employer]ODUCTIVE ENDOCRINOLOGIST for ALL controlled substances?: No Discussed opioids are addictive and Narcan is available by prescription or from pharmacy.: No Condition: Stable Referrals: GLENDA PHILIP [Primary Care Provider] - 09/14/24 8:30 am
[2024-09-07] MEDS: DUONEB NEB SCH (12:18)
--- NOTE | 2024-09-07 13:00 | ECHO2D ---
Date of Exam: 09/07/2024 Room #: SCU 2 Ordering Physician: Nadia WADDELL APRN (HOSPITALIST); DR. PHILIP ([facility]) Reason for Echo: PULMONARY EMBOLISM, ASTHMA, HYPOXEMIA M-Mode Normal Adult Results LV Dimensions Normal Adult Results AoV Opening excursions >1.6 >1.6 LVEDD-base- 3.5-5.8 4.6 Ao root dimensions 2.0-3.7 3.8 LVESD-base- 3.1-4.6 L. Atrium dimensions 1.9-3.8 3.4 Post. Wall thickness 0.8-1.1 1.2 IV septum (thickness) 0.7-1.2 1.2 Post. Wall excursion 0.72-1.3 NORMAL Septal motion NORMAL Systolic motion R. Ventricular cavity 1.5-2.0 2.5 LVEF 60% 70% Paradoxical septal wall motion NORMAL 2-D : 2-D M Mode Echocardiogram was performed using apical four chamber and left parasternal long and short axis views. Mitral, tricuspid and aortic valves appear to be normal. Contractility of the left ventricle seems to be normal, so is the cavity size. Left atrial cavity size and aortic root appear to be normal. There is no pericardial effusion. There is no thrombus noted in the left ventricle or left atrial cavity. M-MODE: MV: NORMAL AV: NORMAL TV: NORMAL PV: NORMAL CHAMBER SIZE: BORDERLINE RIGHT VENTRICULAR CAVITY WALL MOTION: NORMAL PERICARDIUM: NORMAL INTERPRETATION: 1. BORDERLINE LEFT VENTRICULAR HYPERTROPHY. 2. RIGHT VENTRICULAR CAVITY ENLARGEMENT - BORDERLINE. 3. VALVES NORMAL. 4. LEFT VENTRICLE SIZE NORMAL AND NORMAL LEFT VENTRICULAR CONTRACTILITY. MTDD
[2024-09-07 13:50] VITALS: BP 139/91; PULSE 102
[2024-09-07] MEDS: INFLUENZA VACCINE IM ONE (15:56)
[2024-09-07] MEDS: PREVNAR 20 SYRINGE IM ONE (16:08)
== END 2024-09-07 16:30 | disposition home or self-care (01) | DRG 175 ==
LOC: ED 14:46 → SCU 14:46
PROVIDERS: ADMIT Hospitalist; ATTEND Nurse Practitioner Family